=== PATIENT | male | born 1970 | race Caucasian/White ===

== ENCOUNTER 2017-05-05 06:00 | Emergency (ER) | payer BC ==
[2017-05-05] MEDS ORDERED: cefTRIAXone 250 MG Vial IM ONE (06:25)
--- NOTE | 2017-05-05 06:25 | EDM.PDOC ---
ED HPI GENERAL MEDICAL PROBLEM - General Chief Complaint: Genitourinary Problem Stated Complaint: PAIN DURING URINATION Time Seen by Provider: 05/05/17 06:19 - History of Present Illness INITIAL COMMENTS - FREE TEXT/NARRATIVE: HISTORY AND PHYSICAL: History of present illness: Patient is 46-year-old white male presents with a concern of frequency discomfort with urination over the last 24 hours he denies fever chills nausea vomiting or other complaints he states he had similar episode in the past was diagnosed with urinary tract infection he denies urethral discharge states he does not have a history of sexually transmitted diseases and is not concerned about such Review of systems: As per history of present illness and below otherwise all systems reviewed and negative. Past medical history: As per history of present illness and as reviewed below otherwise noncontributory. Surgical history: As per history of present illness and as reviewed below otherwise noncontributory. Social history: No reported history of drug or alcohol abuse. Family history: As per history of present illness and as reviewed below otherwise noncontributory. Physical exam: HEENT: Atraumatic, normocephalic, pupils reactive, negative for conjunctival pallor or scleral icterus, mucous membranes moist, throat clear, neck supple, nontender, trachea midline. Lungs: Clear to auscultation, breath sounds equal bilaterally, chest nontender. Heart: S1S2, regular, negative for clicks, rubs, or JVD. Abdomen: Soft, nondistended, nontender. Negative for masses or hepatosplenomegaly. Negative for costovertebral tenderness. Pelvis: Stable nontender. Genitourinary: Deferred. Rectal: Deferred. Extremities: Atraumatic, negative for cords or calf pain. Neurovascular unremarkable. Neuro: Awake, alert, oriented. Cranial nerves II through XII unremarkable. Cerebellum unremarkable. Motor and sensory unremarkable throughout. Exam nonfocal. Diagnostics: CBC CMP UA urine culture urine for GC/chlamydia Therapeutics: None Impression: #1 dysuria #2 rule out urinary tract infection Definitive disposition and diagnosis as appropriate pending reevaluation and review of above. Penis Pain Score (Numeric/FACES): 7 - Related Data Allergies Allergy/AdvReac Type Severity Reaction Status Date / Time No Known Allergies Allergy Verified 05/05/17 06:09 Home Meds: Home Meds Pantoprazole Sodium 40 mg PO DAILY 05/05/17 [History] Umeclidinium Brm/Vilanterol Tr [Anoro Ellipta 62.5-25 MCG] 1 puff INH ASDIRECTED 05/05/17 [History] ED ROS GENERAL - Review of Systems Review Of Systems: ROS reveals no pertinent complaints other than HPI. ED EXAM, GENERAL - Physical Exam Exam: See Below (See dictation) Course - Vital Signs Last Recorded V/S: Last Vital Signs Temp 36.2 C 05/05/17 06:13 Pulse 114 H 05/05/17 06:13 Resp 18 05/05/17 06:13 BP 123/80 05/05/17 06:13 Pulse Ox 98 05/05/17 06:13 - Orders/Labs/Meds Orders: Active Orders 24 hr Category Date Time Status CBC WITH AUTO DIFF [HEME] Stat Lab 05/05/17 06:21 Ordered CHLAMYDIA TRACHOMATIS/GC AMPLF Stat Lab 05/05/17 06:19 Ordered COMPREHENSIVE METABOLIC PN,CMP [CHEM] Stat Lab 05/05/17 06:22 Ordered CULTURE URINE [RM] Stat Lab 05/05/17 06:19 Ordered UA W/MICROSCOPIC [URIN] Stat Lab 05/05/17 06:19 Ordered Departure - Departure Time of Disposition: 06:24 Disposition: Home, Self-Care 01 Condition: Good Clinical Impression: UTI, Urinary tract infectious disease - Discharge Information Referrals: PCP,None [Primary Care Provider] - Additional Instructions: The following information is given to patients seen in the emergency department who are being discharged to home. This information is to outline your options for follow-up care. We provide all patients seen in our emergency department with a follow-up referral. The need for follow-up, as well as the timing and circumstances, are variable depending upon the specifics of your emergency department visit. If you don't have a primary care physician on staff, we will provide you with a referral. We always advise you to contact your personal physician following an emergency department visit to inform them of the circumstance of the visit and for follow-up with them and/or the need for any referrals to a consulting specialist. The emergency department will also refer you to a specialist when appropriate. This referral assures that you have the opportunity for followup care with a specialist. All of these measure are taken in an effort to provide you with optimal care, which includes your followup. Under all circumstances we always encourage you to contact your private physician who remains a resource for coordinating your care. When calling for followup care, please make the office aware that this follow-up is from your recent emergency room visit. If for any reason you are refused follow-up, please contact the [facility] emergency department at and asked to speak to the emergency department charge nurse. [facility] - Urology [address] [place] [id number] Doxycycline as prescribed Pyridium as prescribed follow-up urology as discussed push fluids return as needed as discussed - My Orders Last 24 Hours: My Active Orders 05/05/17 06:19 CHLAMYDIA TRACHOMATIS/GC AMPLF Stat CULTURE URINE [RM] Stat UA W/MICROSCOPIC [URIN] Stat 05/05/17 06:21 CBC WITH AUTO DIFF [HEME] Stat 05/05/17 06:22 COMPREHENSIVE METABOLIC PN,CMP [CHEM] Stat - Assessment/Plan Last 24 Hours: My Active Orders 05/05/17 06:19 CHLAMYDIA TRACHOMATIS/GC AMPLF Stat CULTURE URINE [RM] Stat UA W/MICROSCOPIC [URIN] Stat 05/05/17 06:21 CBC WITH AUTO DIFF [HEME] Stat 05/05/17 06:22 COMPREHENSIVE METABOLIC PN,CMP [CHEM] Stat
[2017-05-05] MEDS ORDERED: cefTRIAXone 1,000 MG VIAL ONE (06:28)
[2017-05-05] MEDS ORDERED: cefTRIAXone 1,000 MG in Lidocaine 1% 4 ML IM ONE (06:29)
[2017-05-05 07:02] LABS: CHLORIDE,CL 109 mmol/L (98-110); SODIUM,NA 139 mmol/L (136-146)
[2017-05-05 07:28] VITALS: BP 132/70
== END 2017-05-05 07:25 | disposition home or self-care (01) ==
LOC: MW.ED 06:00
DX: N39.0 Urinary tract infection, site not specified (principal)
CPT/HCPCS: 36415; 80053; 81001; 85025; 87086; 87491; 87591; 96372; 99283; J0696; 87088; 87186; 99282

== ENCOUNTER 2019-01-01 10:12 | Observation (INO) | payer BC ==
[2019-01-01] MEDS ORDERED: Ondansetron 4 MG/2 ML SDV IVPUSH ONE ×2 (10:15→11:35)
[2019-01-01] MEDS ORDERED: Ketorolac 30 MG/ML SDV IVPUSH ONE (10:15)
[2019-01-01] MEDS ORDERED: Sodium Chloride 0.9% 1,000 ML IV ONE (10:15)
--- NOTE | 2019-01-01 10:17 | EDM.PDOC ---
ED HPI GENERAL MEDICAL PROBLEM - General Chief Complaint: Abdominal Pain Stated Complaint: STOMACH PAIN Time Seen by Provider: 01/01/19 10:14 Source of Information: Reports: Patient History Limitations: Reports: No Limitations - History of Present Illness INITIAL COMMENTS - FREE TEXT/NARRATIVE: HISTORY AND PHYSICAL: History of present illness: Patient is a 48-year-old male who presents to the emergency room today with complaints of right upper quadrant pain, nausea and vomiting. Patient reports he has had chronic right upper abdominal pain intermittently over the past 8 years. Also has had "diarrhea on and off for about eight years as well". No loose stools or diarrhea today. He does not associate this abdominal pain with eating or drinking. Nothing makes the pain better or worse. States this morning the abdominal pain was worse and associated with nausea and vomiting. He states he does have a history of H. pylori and diverticulosis. Only current medication is Pantoprazole. Patient denies any fever, chills, headache, change in vision, syncope or near syncope. Denies any chest pain, back pain, shortness of breath or cough. Denies any constipation or dysuria. Has not noted any blood in urine or stool. Patient had been eating and drinking appropriately. Review of systems: As per history of present illness and below otherwise all systems reviewed and negative. Past medical history: As per history of present illness and as reviewed below otherwise noncontributory. Surgical history: As per history of present illness and as reviewed below otherwise noncontributory. Social history: See social history for further information Family history: As per history of present illness and as reviewed below otherwise noncontributory. Physical exam: General: Well-developed and well-nourished 48-year-old male. Alert and oriented. Nontoxic appearing and in no acute distress. HEENT: Atraumatic, normocephalic, pupils equal and reactive bilaterally, negative for conjunctival pallor or scleral icterus, mucous membranes moist, TMs normal bilaterally, throat clear, neck supple, nontender, trachea midline. No drooling or trismus noted. No meningeal signs. No hot potato voice noted. Lungs: Clear to auscultation, breath sounds equal bilaterally, chest nontender. Heart: S1S2, regular rate and rhythm without overt murmur Abdomen: Soft, nondistended, right upper quadrant tenderness. Negative for masses or hepatosplenomegaly. Negative for costovertebral tenderness. Pelvis: Stable nontender. Genitourinary: Deferred. Rectal: Deferred. Skin: Intact, warm, dry. No lesions or rashes noted. Extremities: Atraumatic, moves all extremities per self without difficulty or deficits, negative for cords or calf pain. Neurovascular unremarkable. Neuro: Awake, alert, oriented. Cranial nerves II through XII unremarkable. Cerebellum unremarkable. Motor and sensory unremarkable throughout. Exam nonfocal. Notes: Patient reports with this acute onset chronic right upper quadrant pain he has only been treated with a proton pump inhibitor. States that he had the 2 diagnoses of H. pylori and diverticulosis. States he has had an ultrasound of his gallbladder in the past, which was normal. Has had no GI surgeries. CT shows trace clinic within the right upper quadrant, this could represent a mild underlying colitis. There is a few diverticula also noted within the region without overt diverticulitis. The pylorus appears edematous, and peptic ulcer disease cannot be excluded. Patient does have an elevated white count. Patient has not been able to give a urine sample as of yet. Dr. Levi was consulted on this patient along with Dr. Gomez. Patient will be admitted for observation. He is aware and agreeable. 1230: Dr Gomez here to see patient. Diagnostics: CBC, CMP, UA, lipase, H.pylori, CT abd/pelvis Therapeutics: IV fluid, Zofran, Toradol, Cipro, Flagyl, Reglan Impression: Intractable nausea and vomiting Colitis possible peptic ulcer disease Plan: Observation admission to Med/Surg Definitive disposition and diagnosis as appropriate pending reevaluation and review of above. Right Upper Abdomen Pain Score (Numeric/FACES): 10 - Related Data Allergies Allergy/AdvReac Type Severity Reaction Status Date / Time No Known Allergies Allergy Verified 05/05/17 06:09 Home Meds: Home Meds Pantoprazole Sodium 40 mg PO DAILY 05/05/17 [History] Past Medical History HEENT History: Reports: None Cardiovascular History: Reports: None Respiratory History: Reports: None Gastrointestinal History: Reports: Diverticulosis Genitourinary History: Reports: None Musculoskeletal History: Reports: None Neurological History: Reports: None Psychiatric History: Reports: None Endocrine/Metabolic History: Reports: None Hematologic History: Reports: None Immunologic History: Reports: None Oncologic (Cancer) History: Reports: None Dermatologic History: Reports: None - Infectious Disease History Infectious Disease History: Reports: None - Past Surgical History Head Surgeries/Procedures: Reports: None Social & Family History - Family History Family Medical History: Noncontributory - Caffeine Use Caffeine Use: Reports: Coffee ED ROS GENERAL - Review of Systems Review Of Systems: ROS reveals no pertinent complaints other than HPI. ED EXAM, GI/ABD - Physical Exam Exam: See Below (See dictation) Course - Vital Signs Last Recorded V/S: Last Vital Signs Temp 96.5 F 01/01/19 12:45 Pulse 77 01/01/19 12:45 Resp 18 01/01/19 12:45 BP 179/99 H 01/01/19 12:45 Pulse Ox 95 01/01/19 12:45 - Orders/Labs/Meds Orders: Active Orders 24 hr Category Date Time Status Admission Status [Patient Status] [ADT] Stat ADT 01/01/19 12:37 Active UA RFX ZARIA AND CULT IF INDIC [URIN] Stat Lab 01/01/19 10:15 Ordered Ciprofloxacin in D5W [Cipro in D5W 400 MG/200 ML] 400 Med 01/01/19 12:33 Active mg Premix Bag 1 bag IV NOW metroNIDAZOLE/Normal Saline [Flagyl 500 MG in NS 100 ML Med 01/01/19 12:33 Active ] 500 mg Premix Bag 1 bag IV ONETIME Medication Orders Ciprofloxacin/Dextrose 400 mg/ (Premix) 200 mls @ 200 mls/hr IV NOW STA Stop: 01/01/19 13:32 Last Admin: 01/01/19 12:39 Dose: 200 mls/hr Metronidazole 500 mg/ Premix 100 mls @ 100 mls/hr IV ONETIME ONE Stop: 01/01/19 13:32 Labs: Laboratory Tests 01/01/19 01/01/19 01/01/19 Range/Units 10:27 10:27 10:27 WBC 17.31 H (4.0-11.0) K/uL RBC 5.39 (4.50-5.90) M/uL Hgb 16.3 (13.0-17.0) g/dL Hct 47.2 (38.0-50.0) % MCV 87.6 (80.0-98.0) fL MCH 30.2 (27.0-32.0) pg MCHC 34.5 (31.0-37.0) g/dL RDW Std Deviation 43.1 (28.0-62.0) fl RDW Coeff of Eliezer 14 (11.0-15.0) % Plt Count 298 (150-400) K/uL MPV 8.80 (7.40-12.00) fL Neut % (Auto) 80.6 H (48.0-80.0) % Lymph % (Auto) 14.2 L (16.0-40.0) % [place] % (Auto) 4.7 (0.0-15.0) % Eos % (Auto) 0.3 (0.0-7.0) % Baso % (Auto) 0.2 (0.0-1.5) % Neut # (Auto) 14.0 H (1.4-5.7) K/uL Lymph # (Auto) 2.5 H (0.6-2.4) K/uL [place] # (Auto) 0.8 (0.0-0.8) K/uL Eos # (Auto) 0.1 (0.0-0.7) K/uL Baso # (Auto) 0.0 (0.0-0.1) K/uL Nucleated RBC % 0.0 /100WBC Nucleated RBCs # 0 K/uL Sodium 140 (136-148) mmol/L Potassium 4.2 (3.5-5.1) mmol/L Chloride 105 (98-107) mmol/L Carbon Dioxide 20.8 L (21.0-32.0) mmol/L BUN 16 (7.0-18.0) mg/dL Creatinine 1.1 (0.8-1.3) mg/dL Est Cr Clr Drug Dosing 81.18 mL/min Estimated GFR (MDRD) > 60.0 ml/min Glucose 132 H (74-106) mg/dL Calcium 9.0 (8.5-10.1) mg/dL Total Bilirubin 0.3 (0.2-1.0) mg/dL AST 14 L (15-37) IU/L ALT 27 (14-63) IU/L Alkaline Phosphatase 41 L (46-116) U/L Total Protein 8.1 (6.4-8.2) g/dL Albumin 3.9 (3.4-5.0) g/dL Globulin 4.2 H (2.6-4.0) g/dL Albumin/Globulin Ratio 0.9 (0.9-1.6) Lipase 127 (73-393) U/L H. pylori IgG Antibody NEGATIVE (NEG) Meds: Medications Generic Name Dose Route Start Last Admin Trade Name Freq PRN Reason Stop Dose Admin Ciprofloxacin/Dextrose 400 mg/ 200 mls @ 200 mls/hr 01/01/19 12:33 01/01/19 12:39 Premix IV 01/01/19 13:32 200 mls/hr NOW STA Administration Metronidazole 500 mg/ Premix 100 mls @ 100 mls/hr 01/01/19 12:33 IV 01/01/19 13:32 ONETIME ONE Discontinued Medications Generic Name Dose Route Start Last Admin Trade Name Freq PRN Reason Stop Dose Admin Famotidine 20 mg 01/01/19 12:28 01/01/19 12:39 Pepcid IVPUSH 01/01/19 12:29 20 mg ONETIME ONE Administration Sodium Chloride 1,000 mls @ 999 mls/hr 01/01/19 10:15 01/01/19 10:30 Normal Saline IV 01/01/19 11:15 999 mls/hr STAT ONE Administration Iopamidol 100 ml 01/01/19 12:00 01/01/19 12:01 Isovue Multipack-370 (76%) IVPUSH 01/01/19 12:01 100 ml ONETIME ONE Administration Ketorolac Tromethamine 30 mg 01/01/19 10:15 01/01/19 10:29 Toradol IVPUSH 01/01/19 10:16 30 mg ONETIME ONE Administration Metoclopramide HCl 10 mg 01/01/19 12:37 01/01/19 12:41 Reglan IVPUSH 01/01/19 12:38 10 mg ONETIME ONE Administration Morphine Sulfate 2 mg 01/01/19 11:26 01/01/19 11:30 Morphine IVPUSH 01/01/19 11:27 2 mg ONETIME ONE Administration Morphine Sulfate 2 mg 01/01/19 12:05 01/01/19 12:10 Morphine IVPUSH 01/01/19 12:06 2 mg ONETIME ONE Administration Ondansetron HCl 4 mg 01/01/19 10:15 01/01/19 10:29 Zofran IVPUSH 01/01/19 10:16 4 mg ONETIME ONE Administration Ondansetron HCl 4 mg 01/01/19 11:35 01/01/19 11:37 Zofran IVPUSH 01/01/19 11:36 4 mg ONETIME ONE Administration Departure - Departure Time of Disposition: 12:58 Disposition: Refer to Observation Clinical Impression: Colitis Intractable nausea and vomiting Qualifiers: Vomiting type: unspecified Qualified Code(s): R11.2 - Nausea with vomiting, unspecified - Discharge Information - My Orders Last 24 Hours: My Active Orders 01/01/19 10:15 UA RFX ZARIA AND CULT IF INDIC [URIN] Stat 01/01/19 12:33 Ciprofloxacin in D5W [Cipro in D5W 400 MG/200 ML] 400 mg Premix Bag 1 bag IV NOW metroNIDAZOLE/Normal Saline [Flagyl 500 MG in NS 100 ML] 500 mg Premix Bag 1 bag IV ONETIME 01/01/19 12:37 Admission Status [Patient Status] [ADT] Stat - Assessment/Plan Last 24 Hours: My Active Orders 01/01/19 10:15 UA RFX ZARIA AND CULT IF INDIC [URIN] Stat 01/01/19 12:33 Ciprofloxacin in D5W [Cipro in D5W 400 MG/200 ML] 400 mg Premix Bag 1 bag IV NOW metroNIDAZOLE/Normal Saline [Flagyl 500 MG in NS 100 ML] 500 mg Premix Bag 1 bag IV ONETIME 01/01/19 12:37 Admission Status [Patient Status] [ADT] Stat
[2019-01-01 11:16] LABS: CHLORIDE,CL 105 mmol/L (98-107); SODIUM,NA 140 mmol/L (136-148)
[2019-01-01] MEDS ORDERED: Morphine 2 MG/ML Syringe IVPUSH ONE ×2 (11:26→12:05)
[2019-01-01] MEDS ORDERED: Iopamidol 755 MG/ML 500 ML Multipack Bottle IVPUSH ONE (12:00)
--- NOTE | 2019-01-01 12:20 | CT ---
CT of the abdomen and pelvis with contrast. HISTORY: Right upper quadrant pain TECHNIQUE: Axial CT images were obtained of the abdomen and pelvis following administration of 100 mL of Isovue-370 in the left antecubital fossa without complication. Coronal and sagittal reconstructions obtained. FINDINGS: The lung bases are clear, no pleural effusion. The liver, spleen, adrenal glands, and pancreas appear normal. The gallbladder is normal. There is no bulky retroperitoneal lymphadenopathy or abdominal ascites. The kidneys enhance and function symmetrically without evidence of obstructive uropathy. The large and small bowel are normal in caliber without evidence of obstruction. Mild pericolonic inflammation noted near the hepatic flexure. The pylorus also has edematous appearance. There are a few scattered diverticula noted. No pericecal inflammation. The urinary bladder is normal. No pelvic lymphadenopathy or free pelvic fluid. No suspicious osseous abnormalities identified. IMPRESSION: 1. Trace thinning within the right upper quadrant, this could represent a mild underlying colitis. There are a few diverticula also noted within the region without overt diverticulitis. 2. The pylorus also appears edematous, and peptic ulcer disease is not excluded.
[2019-01-01] MEDS ORDERED: Famotidine 20 MG/2 ML SDV IVPUSH ONE (12:28)
[2019-01-01] MEDS ORDERED: metroNIDAZOLE/Normal Saline 500 MG in Premix Bag 1 BAG IV ONE (12:33)
[2019-01-01] MEDS ORDERED: Ciprofloxacin in D5W 400 MG in Premix Bag 1 BAG IV STA ×2 (12:33)
[2019-01-01] MEDS ORDERED: Metoclopramide 10 MG/2 ML SDV IVPUSH ONE (12:37)
--- NOTE | 2019-01-01 14:20 | PCM.HP ---
H&P History of Present Illness - General Date of Service: 01/01/19 Admit Problem/Dx: Admission Diagnosis/Problem Admission Diagnosis/Problem Colitis Source of Information: Patient History Limitations: Reports: No Limitations - History of Present Illness Initial Comments - Free Text/Narative: 48M w/ history of undiagnosed recurrent vomiting, diarrhea, weight loss x8 years presented to the ER with acute flare up of nausea and vomiting that began earlier today. Also complaining of chills. Patient tells me that for the past 8 years, he has had recurrent RUQ pain. He has been to several primary providers for this and he has gotten several different diagnoses including h pylori, GERD , diverticulosis. He has never had an EGD or colonoscopy. HE also endorses 50lbs of weight loss over this time frame, some of which is intentional. He denies blood in stool, but says that he thinks hes emesis today was red in color. Right Upper Abdomen Pain Score (Numeric/FACES): 10 - Related Data Allergies/Adverse Reactions: Allergies Allergy/AdvReac Type Severity Reaction Status Date / Time No Known Allergies Allergy Verified 05/05/17 06:09 Home Medications: Home Meds Pantoprazole Sodium 40 mg PO DAILY 05/05/17 [History] Past Medical History HEENT History: Reports: None Cardiovascular History: Reports: None Respiratory History: Reports: None Gastrointestinal History: Reports: Diverticulosis Other Gastrointestinal History: chronic abdominal pain Genitourinary History: Reports: None Musculoskeletal History: Reports: None Neurological History: Reports: None Psychiatric History: Reports: None Endocrine/Metabolic History: Reports: None Hematologic History: Reports: None Immunologic History: Reports: None Oncologic (Cancer) History: Reports: None Dermatologic History: Reports: None - Infectious Disease History Infectious Disease History: Reports: None - Past Surgical History Head Surgeries/Procedures: Reports: None Social & Family History - Family History Family Medical History: Noncontributory - Tobacco Use Smoking Status *Q: Current Every Day Smoker Years of Tobacco use: 25 Packs/Tins Daily: 1.5 - Caffeine Use Caffeine Use: Reports: Coffee - Recreational Drug Use Recreational Drug Use: No H&P Review of Systems - Review of Systems: Review Of Systems: See Below General: Reports: Chills HEENT: Reports: No Symptoms Pulmonary: Reports: No Symptoms Cardiovascular: Reports: No Symptoms Gastrointestinal: Reports: Abdominal Pain, Diarrhea, Decreased Appetite, Nausea , Vomiting. Denies: Anorexia, Black Stool, Bloody Stool, Constipation, Difficulty Swallowing Genitourinary: Reports: No Symptoms Musculoskeletal: Reports: No Symptoms Skin: Reports: No Symptoms Psychiatric: Reports: No Symptoms Neurological: Reports: No Symptoms Hematologic/Lymphatic: Reports: No Symptoms Immunologic: Reports: No Symptoms Exam - Exam Exam: See Below - Vital Signs Vital Signs: Last Vital Signs Temp 35.8 C 01/01/19 12:45 Pulse 77 01/01/19 12:45 Resp 18 01/01/19 12:45 BP 179/99 H 01/01/19 12:45 Pulse Ox 95 01/01/19 12:45 Weight: 90.718 kg - Exam General: Alert, Oriented, 4 HEENT: PERRLA, Hearing Intact, Mucosa Moist & [place], Nares Patent, Normal Nasal Septum, Posterior Pharynx Clear, Conjunctiva Clear, EOMI, EACs Clear, TMs Clear Neck: Supple, Trachea Midline, 2 Lungs: Clear to Auscultation, Normal Respiratory Effort Cardiovascular: Regular Rate, Regular Rhythm GI/Abdominal Exam: Normal Bowel Sounds, Soft, Non-Tender, No Organomegaly, No Distention, No Abnormal Bruit, No Mass, Pelvis Stable Back Exam: Normal Inspection, Full Range of Motion, NT Extremities: Normal Inspection, Normal Range of Motion, Non-Tender, No Pedal Edema, Normal Capillary Refill Peripheral Pulses: 1+: Dorsalis Pedis (L), Dorsalis Pedis (R) Skin: Warm, Dry, Intact Psychiatric: Alert, Normal Affect, Normal Mood - Patient Data Lab Results Last 24 hrs: Laboratory Results - last 24 hr 01/01/19 01/01/19 01/01/19 Range/Units 10:27 10:27 10:27 WBC 17.31 H (4.0-11.0) K/uL RBC 5.39 (4.50-5.90) M/uL Hgb 16.3 (13.0-17.0) g/dL Hct 47.2 (38.0-50.0) % MCV 87.6 (80.0-98.0) fL MCH 30.2 (27.0-32.0) pg MCHC 34.5 (31.0-37.0) g/dL RDW Std Deviation 43.1 (28.0-62.0) fl RDW Coeff of Eliezer 14 (11.0-15.0) % Plt Count 298 (150-400) K/uL MPV 8.80 (7.40-12.00) fL Neut % (Auto) 80.6 H (48.0-80.0) % Lymph % (Auto) 14.2 L (16.0-40.0) % Ritchie % (Auto) 4.7 (0.0-15.0) % Eos % (Auto) 0.3 (0.0-7.0) % Baso % (Auto) 0.2 (0.0-1.5) % Neut # (Auto) 14.0 H (1.4-5.7) K/uL Lymph # (Auto) 2.5 H (0.6-2.4) K/uL Ritchie # (Auto) 0.8 (0.0-0.8) K/uL Eos # (Auto) 0.1 (0.0-0.7) K/uL Baso # (Auto) 0.0 (0.0-0.1) K/uL Nucleated RBC % 0.0 /100WBC Nucleated RBCs # 0 K/uL Sodium 140 (136-148) mmol/L Potassium 4.2 (3.5-5.1) mmol/L Chloride 105 (98-107) mmol/L Carbon Dioxide 20.8 L (21.0-32.0) mmol/L BUN 16 (7.0-18.0) mg/dL Creatinine 1.1 (0.8-1.3) mg/dL Est Cr Clr Drug Dosing 81.18 mL/min Estimated GFR (MDRD) > 60.0 ml/min Glucose 132 H (74-106) mg/dL Calcium 9.0 (8.5-10.1) mg/dL Total Bilirubin 0.3 (0.2-1.0) mg/dL AST 14 L (15-37) IU/L ALT 27 (14-63) IU/L Alkaline Phosphatase 41 L (46-116) U/L Total Protein 8.1 (6.4-8.2) g/dL Albumin 3.9 (3.4-5.0) g/dL Globulin 4.2 H (2.6-4.0) g/dL Albumin/Globulin Ratio 0.9 (0.9-1.6) Lipase 127 (73-393) U/L Urine Color Urine Appearance Urine pH (5.0-8.0) Ur Specific [place] (1.001-1.035) Urine Protein (NEGATIVE) mg/dL Urine Glucose (UA) (NEGATIVE) mg/dL Urine Ketones (NEGATIVE) mg/dL Urine Occult Blood (NEGATIVE) Urine Nitrite (NEGATIVE) Urine Bilirubin (NEGATIVE) Urine Urobilinogen (<2.0) EU/dL Ur Leukocyte Esterase (NEGATIVE) Urine RBC (0-2/HPF) Urine WBC (0-5/HPF) Ur Epithelial Cells (NONE-FEW) Urine Bacteria (NEGATIVE) H. pylori IgG Antibody NEGATIVE (NEG) 01/01/19 Range/Units 12:52 WBC (4.0-11.0) K/uL RBC (4.50-5.90) M/uL Hgb (13.0-17.0) g/dL Hct (38.0-50.0) % MCV (80.0-98.0) fL MCH (27.0-32.0) pg MCHC (31.0-37.0) g/dL RDW Std Deviation (28.0-62.0) fl RDW Coeff of Eliezer (11.0-15.0) % Plt Count (150-400) K/uL MPV (7.40-12.00) fL Neut % (Auto) (48.0-80.0) % Lymph % (Auto) (16.0-40.0) % Ritchie % (Auto) (0.0-15.0) % Eos % (Auto) (0.0-7.0) % Baso % (Auto) (0.0-1.5) % Neut # (Auto) (1.4-5.7) K/uL Lymph # (Auto) (0.6-2.4) K/uL Ritchie # (Auto) (0.0-0.8) K/uL Eos # (Auto) (0.0-0.7) K/uL Baso # (Auto) (0.0-0.1) K/uL Nucleated RBC % /100WBC Nucleated RBCs # K/uL Sodium (136-148) mmol/L Potassium (3.5-5.1) mmol/L Chloride (98-107) mmol/L Carbon Dioxide (21.0-32.0) mmol/L BUN (7.0-18.0) mg/dL Creatinine (0.8-1.3) mg/dL Est Cr Clr Drug Dosing mL/min Estimated GFR (MDRD) ml/min Glucose (74-106) mg/dL Calcium (8.5-10.1) mg/dL Total Bilirubin (0.2-1.0) mg/dL AST (15-37) IU/L ALT (14-63) IU/L Alkaline Phosphatase (46-116) U/L Total Protein (6.4-8.2) g/dL Albumin (3.4-5.0) g/dL Globulin (2.6-4.0) g/dL Albumin/Globulin Ratio (0.9-1.6) Lipase (73-393) U/L Urine Color YELLOW Urine Appearance CLEAR Urine pH 6.5 (5.0-8.0) Ur Specific [place] 1.010 (1.001-1.035) Urine Protein NEGATIVE (NEGATIVE) mg/dL Urine Glucose (UA) NEGATIVE (NEGATIVE) mg/dL Urine Ketones 15 H (NEGATIVE) mg/dL Urine Occult Blood MODERATE H (NEGATIVE) Urine Nitrite NEGATIVE (NEGATIVE) Urine Bilirubin NEGATIVE (NEGATIVE) Urine Urobilinogen 0.2 (<2.0) EU/dL Ur Leukocyte Esterase NEGATIVE (NEGATIVE) Urine RBC 1-3 (0-2/HPF) Urine WBC NONE SEEN (0-5/HPF) Ur Epithelial Cells NOT SEEN (NONE-FEW) Urine Bacteria RARE (NEGATIVE) H. pylori IgG Antibody (NEG) Result Diagrams: 01/01/19 10:27 01/01/19 10:27 Problem List Initiated/Reviewed/Updated: Yes Orders Last 24hrs: Active Orders 24 hr Category Date Time Status Admission Status [Patient Status] [ADT] Stat ADT 01/01/19 12:37 Active Assessment/Plan Comment:: Assessment: #1. Colitis #2. Leukocytosis #3. Nausea #4. History of recurrent RUQ pain, vomiting, diarrhea #5. Moderate hematuria Plan: #1. Refer for observation. Vitals per floor #2. NPO #3. IV Cipro + Flagyl #4. IVNS 125ml/h #5. To get EGD tomorrow AM by general surgery. Should get a colonoscopy as an outpatient once colitis resolves. #6. Protonix IV 40mg daily #7. Hematuria cause is unclear - he should get a repeat UA as an outpatient and a CT urography/ urology referral. Patient is a current 1-1.5ppd smoker.
[2019-01-01] MEDS ORDERED: Pantoprazole 40 MG in Sodium Chloride 0.9% 100 ML IV SCH (14:30)
[2019-01-01] MEDS: metroNIDAZOLE/Normal Saline 500 MG in Premix Bag 1 BAG IV SCH ×2 (14:34→22:07)
[2019-01-01] MEDS ORDERED: Pantoprazole 40 MG Vial IVPUSH SCH (14:45)
[2019-01-01] MEDS ORDERED: Pantoprazole 40 MG in Sodium Chloride 0.9% 10 ML IV SCH (14:45)
[2019-01-01] MEDS: Sodium Chloride 0.9% 1,000 ML IV SCH ×2 (14:57→22:07)
[2019-01-01] MEDS: Pantoprazole 40 MG in Sodium Chloride 0.9% 10 ML IVPUSH SCH (15:21)
[2019-01-01] MEDS: Ciprofloxacin in D5W 400 MG in Premix Bag 1 BAG IV SCH ×2 (15:25)
[2019-01-01] MEDS: Lisinopril 10 MG Tab PO SCH (15:52)
--- NOTE | 2019-01-01 16:03 | PCM.CONS ---
H&P History of Present Illness - General Date of Service: 01/01/19 Admit Problem/Dx: Admission Diagnosis/Problem Admission Diagnosis/Problem Colitis Source of Information: Patient History Limitations: Reports: No Limitations - History of Present Illness Initial Comments - Free Text/Narative: Patient is a 48-year-old male who presents with acute upper abdominal pain. He says this has been going on for the past 8 years. It is never been this severe. It suddenly came on and he has sharp abdominal pain just to the right of the epigastric area. This is associated with nausea and vomiting. He believes there has been some red tinge to his vomit. He has gone to multiple doctors over the years and been told he has H. pylori, GERD, and diverticulosis. He has a prescription for pantoprazole but only takes this if needed. He has never had an EGD or colonoscopy. He denies any family history of rheumatologic disease or colon cancer. He is very anxious on my exam and states the pain is 10 out of 10. His last bowel movement was this morning. He had several small ones that appeared normal. He denied any hematochezia or melena. Right Upper Abdomen Pain Score (Numeric/FACES): 10 - Related Data Allergies/Adverse Reactions: Allergies Allergy/AdvReac Type Severity Reaction Status Date / Time No Known Allergies Allergy Verified 05/05/17 06:09 Home Medications: Home Meds Pantoprazole Sodium 40 mg PO DAILY 05/05/17 [History] Past Medical History HEENT History: Reports: None Cardiovascular History: Reports: None Respiratory History: Reports: None Gastrointestinal History: Reports: Diverticulosis Other Gastrointestinal History: chronic abdominal pain Genitourinary History: Reports: None Musculoskeletal History: Reports: None Neurological History: Reports: None Psychiatric History: Reports: None Endocrine/Metabolic History: Reports: None Hematologic History: Reports: None Immunologic History: Reports: None Oncologic (Cancer) History: Reports: None Dermatologic History: Reports: None - Infectious Disease History Infectious Disease History: Reports: None - Past Surgical History Head Surgeries/Procedures: Reports: None Social & Family History - Family History Family Medical History: Noncontributory - Tobacco Use Smoking Status *Q: Current Every Day Smoker Years of Tobacco use: 25 Packs/Tins Daily: 1.5 Used Tobacco, but Quit: No - Caffeine Use Caffeine Use: Reports: Coffee - Recreational Drug Use Recreational Drug Use: No H&P Review of Systems - Review of Systems: Review Of Systems: ROS reveals no pertinent complaints other than HPI. Exam - Exam Exam: See Below - Vital Signs Vital Signs: Last Vital Signs Temp 36.6 C 01/01/19 14:00 Pulse 65 01/01/19 14:00 Resp 16 01/01/19 14:00 BP 149/82 H 01/01/19 15:52 Pulse Ox 97 01/01/19 14:00 Weight: 90.718 kg - Exam General: Alert, Oriented, Severe Distress HEENT: Conjunctiva Clear, Mucosa Moist & Okay, Posterior Pharynx Clear Lungs: Clear to Auscultation, Normal Respiratory Effort Cardiovascular: Regular Rate, Regular Rhythm GI/Abdominal Exam: Soft, Tender (epigastric area with deep palpation). No: Guarding, Rigid, Rebound (Male) Exam: No Hernia Back Exam: Normal Inspection Extremities: Normal Inspection - Patient Data Lab Results Last 24 hrs: Laboratory Results - last 24 hr 01/01/19 01/01/19 01/01/19 Range/Units 10:27 10:27 10:27 WBC 17.31 H (4.0-11.0) K/uL RBC 5.39 (4.50-5.90) M/uL Hgb 16.3 (13.0-17.0) g/dL Hct 47.2 (38.0-50.0) % MCV 87.6 (80.0-98.0) fL MCH 30.2 (27.0-32.0) pg MCHC 34.5 (31.0-37.0) g/dL RDW Std Deviation 43.1 (28.0-62.0) fl RDW Coeff of Eliezer 14 (11.0-15.0) % Plt Count 298 (150-400) K/uL MPV 8.80 (7.40-12.00) fL Neut % (Auto) 80.6 H (48.0-80.0) % Lymph % (Auto) 14.2 L (16.0-40.0) % [place] % (Auto) 4.7 (0.0-15.0) % Eos % (Auto) 0.3 (0.0-7.0) % Baso % (Auto) 0.2 (0.0-1.5) % Neut # (Auto) 14.0 H (1.4-5.7) K/uL Lymph # (Auto) 2.5 H (0.6-2.4) K/uL [place] # (Auto) 0.8 (0.0-0.8) K/uL Eos # (Auto) 0.1 (0.0-0.7) K/uL Baso # (Auto) 0.0 (0.0-0.1) K/uL Nucleated RBC % 0.0 /100WBC Nucleated RBCs # 0 K/uL Sodium 140 (136-148) mmol/L Potassium 4.2 (3.5-5.1) mmol/L Chloride 105 (98-107) mmol/L Carbon Dioxide 20.8 L (21.0-32.0) mmol/L BUN 16 (7.0-18.0) mg/dL Creatinine 1.1 (0.8-1.3) mg/dL Est Cr Clr Drug Dosing 81.18 mL/min Estimated GFR (MDRD) > 60.0 ml/min Glucose 132 H (74-106) mg/dL Calcium 9.0 (8.5-10.1) mg/dL Total Bilirubin 0.3 (0.2-1.0) mg/dL AST 14 L (15-37) IU/L ALT 27 (14-63) IU/L Alkaline Phosphatase 41 L (46-116) U/L Total Protein 8.1 (6.4-8.2) g/dL Albumin 3.9 (3.4-5.0) g/dL Globulin 4.2 H (2.6-4.0) g/dL Albumin/Globulin Ratio 0.9 (0.9-1.6) Lipase 127 (73-393) U/L Urine Color Urine Appearance Urine pH (5.0-8.0) Ur Specific [place] (1.001-1.035) Urine Protein (NEGATIVE) mg/dL Urine Glucose (UA) (NEGATIVE) mg/dL Urine Ketones (NEGATIVE) mg/dL Urine Occult Blood (NEGATIVE) Urine Nitrite (NEGATIVE) Urine Bilirubin (NEGATIVE) Urine Urobilinogen (<2.0) EU/dL Ur Leukocyte Esterase (NEGATIVE) Urine RBC (0-2/HPF) Urine WBC (0-5/HPF) Ur Epithelial Cells (NONE-FEW) Urine Bacteria (NEGATIVE) H. pylori IgG Antibody NEGATIVE (NEG) 01/01/19 Range/Units 12:52 WBC (4.0-11.0) K/uL RBC (4.50-5.90) M/uL Hgb (13.0-17.0) g/dL Hct (38.0-50.0) % MCV (80.0-98.0) fL MCH (27.0-32.0) pg MCHC (31.0-37.0) g/dL RDW Std Deviation (28.0-62.0) fl RDW Coeff of Eliezer (11.0-15.0) % Plt Count (150-400) K/uL MPV (7.40-12.00) fL Neut % (Auto) (48.0-80.0) % Lymph % (Auto) (16.0-40.0) % [place] % (Auto) (0.0-15.0) % Eos % (Auto) (0.0-7.0) % Baso % (Auto) (0.0-1.5) % Neut # (Auto) (1.4-5.7) K/uL Lymph # (Auto) (0.6-2.4) K/uL [place] # (Auto) (0.0-0.8) K/uL Eos # (Auto) (0.0-0.7) K/uL Baso # (Auto) (0.0-0.1) K/uL Nucleated RBC % /100WBC Nucleated RBCs # K/uL Sodium (136-148) mmol/L Potassium (3.5-5.1) mmol/L Chloride (98-107) mmol/L Carbon Dioxide (21.0-32.0) mmol/L BUN (7.0-18.0) mg/dL Creatinine (0.8-1.3) mg/dL Est Cr Clr Drug Dosing mL/min Estimated GFR (MDRD) ml/min Glucose (74-106) mg/dL Calcium (8.5-10.1) mg/dL Total Bilirubin (0.2-1.0) mg/dL AST (15-37) IU/L ALT (14-63) IU/L Alkaline Phosphatase (46-116) U/L Total Protein (6.4-8.2) g/dL Albumin (3.4-5.0) g/dL Globulin (2.6-4.0) g/dL Albumin/Globulin Ratio (0.9-1.6) Lipase (73-393) U/L Urine Color YELLOW Urine Appearance CLEAR Urine pH 6.5 (5.0-8.0) Ur Specific [place] 1.010 (1.001-1.035) Urine Protein NEGATIVE (NEGATIVE) mg/dL Urine Glucose (UA) NEGATIVE (NEGATIVE) mg/dL Urine Ketones 15 H (NEGATIVE) mg/dL Urine Occult Blood MODERATE H (NEGATIVE) Urine Nitrite NEGATIVE (NEGATIVE) Urine Bilirubin NEGATIVE (NEGATIVE) Urine Urobilinogen 0.2 (<2.0) EU/dL Ur Leukocyte Esterase NEGATIVE (NEGATIVE) Urine RBC 1-3 (0-2/HPF) Urine WBC NONE SEEN (0-5/HPF) Ur Epithelial Cells NOT SEEN (NONE-FEW) Urine Bacteria RARE (NEGATIVE) H. pylori IgG Antibody (NEG) Result Diagrams: 01/01/19 10:27 01/01/19 10:27 Consult PN Assessment/Plan Procedures: Procedures CHYLMD TRACH DNA AMP PROBE (05/05/17) CO/MEMBANE DIFFUSE CAPACITY (05/07/17) COMPLETE CBC W/AUTO DIFF WBC (05/05/17) COMPREHEN METABOLIC PANEL (05/05/17) EMERGENCY DEPT VISIT (05/05/17) EVALUATION OF WHEEZING (05/07/17) N.GONORRHOEAE DNA AMP PROB (05/05/17) ROUTINE VENIPUNCTURE (05/05/17) THER/PROPH/DIAG INJ SC/IM (05/05/17) URINALYSIS AUTO W/SCOPE (05/05/17) URINE CULTURE/COLONY COUNT (05/05/17) (1) Colitis SNOMED Code(s): 34614045 Code(s): K52.9 - NONINFECTIVE GASTROENTERITIS AND COLITIS, UNSPECIFIED Current Visit: Yes (2) Intractable nausea and vomiting SNOMED Code(s): 581019944 Code(s): R11.2 - NAUSEA WITH VOMITING, UNSPECIFIED Current Visit: Yes Qualifiers: Vomiting type: unspecified Qualified Code(s): R11.2 - Nausea with vomiting , unspecified Problem List Initiated/Reviewed/Updated: Yes Plan: Other than being hypertensive the patient appears to be vitally stable on admission. His white blood cell count is elevated at 17,000 with a left shift. CT scan of the abdomen pelvis showed some inflammation at the pylorus crushable for peptic ulcer disease as well some mild thickening at the hepatic flexure suggestive of mild colitis. I explained to the patient that he could have 2 processes going on or one causing the other. He'll be admitted to the medicine team. He should get blood spectrum IV antibiotics, kept nothing by mouth, and he started on IV PPI therapy. Pain control per the primary team. He can start sucralfate or Carafate 4 times a day. His H. pylori test was negative. I will perform a diagnostic EGD on him to look for peptic ulcer disease. Given the signs of inflammation of the colon, I will not perform a diagnostic colonoscopy at this time. I discussed the EGD procedure including the expected perioperative course as well as the risks such as bleeding and perforation. He verbalized understanding and wished to proceed. I will try to perform this test tomorrow.
[2019-01-01] MEDS: Ondansetron 4 MG/2 ML SDV IVPUSH PRN (18:19)
[2019-01-02] MEDS: Ciprofloxacin in D5W 400 MG in Premix Bag 1 BAG IV SCH ×4 (02:14→14:13)
[2019-01-02] MEDS: Ondansetron 4 MG/2 ML SDV IVPUSH PRN ×3 (05:17→22:01)
[2019-01-02] MEDS: metroNIDAZOLE/Normal Saline 500 MG in Premix Bag 1 BAG IV SCH ×3 (06:03→22:01)
[2019-01-02 06:57] LABS: CHLORIDE,CL 107 mmol/L (98-107); SODIUM,NA 140 mmol/L (136-148)
[2019-01-02] MEDS ORDERED: fentaNYL 100 MCG/2 ML SDV ONE (07:02)
[2019-01-02] MEDS ORDERED: Propofol 200 MG/20 ML SDV ONE (07:02)
[2019-01-02] MEDS ORDERED: Midazolam 1 MG/ML 2 ML SDV ONE (07:03)
[2019-01-02] MEDS ORDERED: Ondansetron 4 MG/2 ML SDV ONE (07:04)
[2019-01-02] MEDS ORDERED: Dexamethasone 4 MG/ML 5 ML MDV ONE (07:04)
[2019-01-02] MEDS ORDERED: Rocuronium 100 MG/10 ML Syringe ONE (07:07)
--- NOTE | 2019-01-02 07:23 | PCM.PREANE ---
Preanesthetic Assessment - Anesthesia/Transfusion/Family Hx Anesthesia History: No Prior Anesthesia Family History of Anesthesia Reaction: No Transfusion History: No Prior Transfusion(s) - Review of Systems General: No Symptoms Pulmonary: No Symptoms Cardiovascular: No Symptoms Gastrointestinal: Abdominal Pain, Nausea, Vomiting Neurological: No Symptoms Other: Reports: None - Physical Assessment NPO Status Date: 01/01/19 NPO Status Time: 22:00 (water) O2 Sat by Pulse Oximetry: 95 Respiratory Rate: 18 Blood Pressure: 149/82 Vital Signs: Last Vital Signs Temp 37 C 01/02/19 03:44 Pulse 70 01/02/19 03:44 Resp 18 01/02/19 03:44 BP 156/87 H 01/02/19 03:44 Pulse Ox 95 01/02/19 03:44 Height: 1.73 m Weight: 90.718 kg ASA Class: 2 Mental Status: Alert & Oriented x3 Airway Class: Mallampati = 2 Dentition: Reports: Broken Tooth/Teeth (states top right and left have broken teeth) ROM/Head Extension: Full - Lab Values: Laboratory Last Values WBC 12.30 K/uL (4.0-11.0) H 01/02/19 05:59 RBC 4.84 M/uL (4.50-5.90) 01/02/19 05:59 Hgb 14.2 g/dL (13.0-17.0) 01/02/19 05:59 Hct 42.7 % (38.0-50.0) 01/02/19 05:59 MCV 88.2 fL (80.0-98.0) 01/02/19 05:59 MCH 29.3 pg (27.0-32.0) 01/02/19 05:59 MCHC 33.3 g/dL (31.0-37.0) 01/02/19 05:59 RDW Std Deviation 43.1 fl (28.0-62.0) 01/02/19 05:59 RDW Coeff of Eliezer 13 % (11.0-15.0) 01/02/19 05:59 Plt Count 261 K/uL (150-400) 01/02/19 05:59 MPV 8.80 fL (7.40-12.00) 01/02/19 05:59 Neut % (Auto) 80.6 % (48.0-80.0) H 01/01/19 10:27 Lymph % (Auto) 14.2 % (16.0-40.0) L 01/01/19 10:27 [place] % (Auto) 4.7 % (0.0-15.0) 01/01/19 10:27 Eos % (Auto) 0.3 % (0.0-7.0) 01/01/19 10:27 Baso % (Auto) 0.2 % (0.0-1.5) 01/01/19 10:27 Neut # (Auto) 14.0 K/uL (1.4-5.7) H 01/01/19 10: Lymph # (Auto) 2.5 K/uL (0.6-2.4) H 01/01/19 10:27 [place] # (Auto) 0.8 K/uL (0.0-0.8) 01/01/19 10: Eos # (Auto) 0.1 K/uL (0.0-0.7) 01/01/19 10: Baso # (Auto) 0.0 K/uL (0.0-0.1) 01/01/19 10:27 Nucleated RBC % 0.0 /100WBC 01/02/19 05:59 Nucleated RBCs # 0 K/uL 01/02/19 05:59 Sodium 140 mmol/L (136-148) 01/02/19 05:59 Potassium 3.7 mmol/L (3.5-5.1) 01/02/19 05:59 Chloride 107 mmol/L (98-107) 01/02/19 05:59 Carbon Dioxide 22.3 mmol/L (21.0-32.0) 01/02/19 05:59 BUN 7 mg/dL (7.0-18.0) 01/02/19 05:59 Creatinine 0.9 mg/dL (0.8-1.3) 01/02/19 05:59 Est Cr Clr Drug Dosing 99.22 mL/min 01/02/19 05:59 Estimated GFR (MDRD) > 60.0 ml/min 01/02/19 05:59 Glucose 116 mg/dL (74-106) H 01/02/19 05:59 Calcium 8.2 mg/dL (8.5-10.1) L 01/02/19 05:59 Total Bilirubin 0.6 mg/dL (0.2-1.0) 01/02/19 05:59 AST 8 IU/L (15-37) L 01/02/19 05:59 ALT 19 IU/L (14-63) 01/02/19 05:59 Alkaline Phosphatase 37 U/L (46-116) L 01/02/19 05:59 Total Protein 6.7 g/dL (6.4-8.2) 01/02/19 05:59 Albumin 3.2 g/dL (3.4-5.0) L 01/02/19 05:59 Globulin 3.5 g/dL (2.6-4.0) 01/02/19 05:59 Albumin/Globulin Ratio 0.9 (0.9-1.6) 01/02/19 05:59 Lipase 127 U/L (73-393) 01/01/19 10:27 Urine Color YELLOW 01/01/19 12:52 Urine Appearance CLEAR 01/01/19 12:52 Urine pH 6.5 (5.0-8.0) 01/01/19 12:52 Ur Specific [place] 1.010 (1.001-1.035) 01/01/19 12:52 Urine Protein NEGATIVE mg/dL (NEGATIVE) 01/01/19 12:52 Urine Glucose (UA) NEGATIVE mg/dL (NEGATIVE) 01/01/19 12:52 Urine Ketones 15 mg/dL (NEGATIVE) H 01/01/19 12:52 Urine Occult Blood MODERATE (NEGATIVE) H 01/01/19 12:52 Urine Nitrite NEGATIVE (NEGATIVE) 01/01/19 12:52 Urine Bilirubin NEGATIVE (NEGATIVE) 01/01/19 12:52 Urine Urobilinogen 0.2 EU/dL (<2.0) 01/01/19 12:52 Ur Leukocyte Esterase NEGATIVE (NEGATIVE) 01/01/19 12:52 Urine RBC 1-3 (0-2/HPF) 01/01/19 12:52 Urine WBC NONE SEEN (0-5/HPF) 01/01/19 12:52 Ur Epithelial Cells NOT SEEN (NONE-FEW) 01/01/19 12:52 Urine Bacteria RARE (NEGATIVE) 01/01/19 12:52 H. pylori IgG Antibody NEGATIVE (NEG) 01/01/19 10:27 - Allergies Allergies/Adverse Reactions: Allergies Allergy/AdvReac Type Severity Reaction Status Date / Time No Known Allergies Allergy Verified 05/05/17 06:09 - Anesthesia Plan Free Text/Narrative:: ETT with RSI - Acknowledgements Anesthesia Type Planned: General Anesthesia Pt an Appropriate Candidate for the Planned Anesthesia: Yes Alternatives and Risks of Anesthesia Discussed w Pt/Guardian: Yes Pt/Guardian Understands and Agrees with Anesthesia Plan: Yes PreAnesthesia Questionnaire HEENT History: Reports: None Cardiovascular History: Reports: None Respiratory History: Reports: None Gastrointestinal History: Reports: Diverticulosis Other Gastrointestinal History: chronic abdominal pain Genitourinary History: Reports: None Musculoskeletal History: Reports: None Neurological History: Reports: None Psychiatric History: Reports: None Endocrine/Metabolic History: Reports: None Hematologic History: Reports: None Immunologic History: Reports: None Oncologic (Cancer) History: Reports: None Dermatologic History: Reports: None - Infectious Disease History Infectious Disease History: Reports: None - Past Surgical History Head Surgeries/Procedures: Reports: None - SUBSTANCE USE Smoking Status *Q: Current Every Day Smoker Tobacco Use Within Last Twelve Months: Cigarettes Recreational Drug Use History: No - HOME MEDS Home Medications: Home Meds Pantoprazole Sodium 40 mg PO DAILY 05/05/17 [History] - CURRENT (IN HOUSE) MEDS Current Meds: Current Medications Sodium Chloride (Normal Saline) 1,000 mls @ 125 mls/hr IV ASDIRECTED [facility] Last Admin: 01/01/19 22:07 Dose: 125 mls/hr Ciprofloxacin/Dextrose 400 mg/ (Premix) 200 mls @ 200 mls/hr IV Q12H [facility] Last Admin: 01/02/19 02:14 Dose: 200 mls/hr Metronidazole 500 mg/ Premix 100 mls @ 100 mls/hr IV Q8H [facility] Last Admin: 01/02/19 06:03 Dose: 6 mls/hr Pantoprazole Sodium 40 mg/ (Sodium Chloride) 10 mls @ 200 mls/hr IVPUSH Q24H [facility] Last Admin: 01/01/19 15:21 Dose: 200 mls/hr Lisinopril (Prinivil) 10 mg PO DAILY [facility] Last Admin: 01/01/19 15:52 Dose: 10 mg Ondansetron HCl (Zofran) 4 mg IVPUSH Q4H PRN PRN Reason: Nausea Last Admin: 01/02/19 05:17 Dose: 4 mg Discontinued Medications Dexamethasone (Dexamethasone) Confirm Administered Dose 20 mg .ROUTE .STK-MED ONE Stop: 01/02/19 07:05 Famotidine (Pepcid) 20 mg IVPUSH ONETIME ONE Stop: 01/01/19 12:29 Last Admin: 01/01/19 12:39 Dose: 20 mg Fentanyl (Sublimaze) Confirm Administered Dose 100 mcg .ROUTE .STK-MED ONE Stop: 01/02/19 07:03 Sodium Chloride (Normal Saline) 1,000 mls @ 999 mls/hr IV STAT ONE Stop: 01/01/19 11:15 Last Admin: 01/01/19 10:30 Dose: 999 mls/hr Ciprofloxacin/Dextrose 400 mg/ (Premix) 200 mls @ 200 mls/hr IV NOW STA Stop: 01/01/19 13:32 Last Admin: 01/01/19 12:39 Dose: 200 mls/hr Metronidazole 500 mg/ Premix 100 mls @ 100 mls/hr IV ONETIME ONE Stop: 01/01/19 13:32 Last Admin: 01/01/19 14:02 Dose: 100 mls/hr Pantoprazole Sodium 40 mg/ (Sodium Chloride) 100 mls @ 10 mls/hr IV Q24H [facility] Last Admin: 01/01/19 17:17 Dose: Not Given Lidocaine HCl (Xylocaine-Mpf 1%) Confirm Administered Dose 5 mls @ as directed .ROUTE .STK-MED ONE Stop: 01/02/19 07:05 Iopamidol (Isovue Multipack-370 (76%)) 100 ml IVPUSH ONETIME ONE Stop: 01/01/19 12:01 Last Admin: 01/01/19 12:01 Dose: 100 ml Ketorolac Tromethamine (Toradol) 30 mg IVPUSH ONETIME ONE Stop: 01/01/19 10:16 Last Admin: 01/01/19 10:29 Dose: 30 mg Metoclopramide HCl (Reglan) 10 mg IVPUSH ONETIME ONE Stop: 01/01/19 12:38 Last Admin: 01/01/19 12:41 Dose: 10 mg Midazolam HCl (Versed 1 Mg/Ml) Confirm Administered Dose 2 mg .ROUTE .STK-MED ONE Stop: 01/02/19 07:04 Morphine Sulfate (Morphine) 2 mg IVPUSH ONETIME ONE Stop: 01/01/19 11:27 Last Admin: 01/01/19 11:30 Dose: 2 mg Morphine Sulfate (Morphine) 2 mg IVPUSH ONETIME ONE Stop: 01/01/19 12:06 Last Admin: 01/01/19 12:10 Dose: 2 mg Ondansetron HCl (Zofran) 4 mg IVPUSH ONETIME ONE Stop: 01/01/19 10:16 Last Admin: 01/01/19 10:29 Dose: 4 mg Ondansetron HCl (Zofran) 4 mg IVPUSH ONETIME ONE Stop: 01/01/19 11:36 Last Admin: 01/01/19 11:37 Dose: 4 mg Ondansetron HCl (Zofran) Confirm Administered Dose 4 mg .ROUTE .STK-MED ONE Stop: 01/02/19 07:05 Propofol (Diprivan 20 Ml) Confirm Administered Dose 200 mg .ROUTE .STK-MED ONE Stop: 01/02/19 07:03 Rocuronium [place] (Zemuron) Confirm Administered Dose 100 mg .ROUTE .STK-MED ONE Stop: 01/02/19 07:08 Succinylcholine Chloride (Succinylcholine Chloride) Confirm Administered Dose 200 mg .ROUTE .STK-MED ONE Stop: 01/02/19 07:08
[2019-01-02] MEDS ORDERED: Phenylephrine/Normal Saline 100 MCG/ML 10 ML Syringe ONE (07:58)
--- NOTE | 2019-01-02 08:14 | PCM.OPNOTE ---
- General Post-Op/Procedure Note Date of Surgery/Procedure: 01/02/19 Operative Procedure(s): Diagnostic EGD with biopsy Findings: Large ulcer in the pylorus. No curent signs of bleeding but ~100cc coffee ground emesis in stomach. Duodenitis. Small ulcer at Z-line (junction of esophagus and stomach) Pre Op Diagnosis: Pyloric inflammation Post-Op Diagnosis: Peptic ulcer disease Anesthesia Technique: General ET Tube Primary Surgeon: Emma Gomez Condition: Fair Free Text/Narrative:: Intake & Output 01/01/19 01/02/19 01/02/19 22:59 06:59 14:59 Intake Total 10 1986 Output Total 0 1280 Balance 10 707
--- NOTE | 2019-01-02 08:19 | PCM.SN ---
- Free Text/Narrative Note: Patient had one small emesis last evening. Vitals stable other than hypertensive. Abdomen soft, nontender this morning. Took to OR for diagnostic EGD. This shows PUD with an ulcer along the pylorus, duodenitis and a small ulcer at the GE junction. There was very little fluid in the stomach at the time of the scope so did not place an NG. Labs are improving. Would continue with broad spectrum antibiotics for colitis. Continue with PPI treatment and sucralfate for PUD. If patient feeling better with good nausea control can advance to clears but would not advance past this today. If in am his WBC is normal and tolerating clears can advance to regular.
--- NOTE | 2019-01-02 08:37 | PCM.POSTAN ---
POST ANESTHESIA ASSESSMENT - MENTAL STATUS Mental Status: Alert, Oriented - RESPIRATORY Respiratory Status: Respiratory Rate WNL, Airway Patent, O2 Saturation Stable - CARDIOVASCULAR CV Status: Pulse Rate WNL, Blood Pressure Stable - GASTROINTESTINAL GI Status: No Symptoms - POST OP HYDRATION Hydration Status: Adequate & Stable
[2019-01-02] MEDS: Lisinopril 10 MG Tab PO SCH (09:14)
--- NOTE | 2019-01-02 09:20 | OR ---
SURGEON: LASHON VARGAS MD DATE OF PROCEDURE: 01/02/2019 PREOPERATIVE DIAGNOSIS: Pyloric inflammation. POSTOPERATIVE DIAGNOSIS: Peptic ulcer disease. PROCEDURE PERFORMED: Diagnostic EGD with biopsy. ANESTHESIA: MAC. INSTRUMENT USED: Olympus endoscope. EXTENT OF EXAM: To the second portion of duodenum. PREPARATION: Good. LIMITATIONS: None. INDICATION FOR EXAMINATION: The patient is a 48-year-old male who presents with severe abdominal pain. He was admitted to the ER to the Medicine Team. A CT scan of the abdomen and pelvis showed pyloric inflammation as well as colitis. He is being treated with broad-spectrum antibiotics and PPI therapy. H pylori antigen test was negative. The patient and I discussed the need for diagnostic EGD to confirm the cause of his pyloric inflammation. I explained the procedure, expected perioperative course, and risks including bleeding, infection, or damage to surrounding structures including perforation. The patient verbalized understanding and wishes to proceed. PROCEDURE IN DETAIL: The patient was brought to the OR and placed on the OR cart in supine position. A time-out was completed verifying the patient's name, age, date of , allergies, and procedure to be performed. General endotracheal anesthesia was induced. A bite block was placed in the patient's mouth and he was placed in a beach chair position. A well lubricated endoscope was placed in the patient's mouth and advanced under direct visualization to the pylorus. Upon entering the stomach, about 100 mL of coffee-ground emesis was encountered. This was suctioned out. I was unable to get a better look at the gastric mucosa. The patient had a cratered ulcer in the pre-pyloric area. There was no clot on this and no exposed vessel. There were no signs of recent bleeding. I gently navigated my scope past this area. There was some solid food in the first portion of duodenum. With gentle manipulation, I was able to get pass this food and visualized the second portion duodenum. Photograph was taken of this area and the scope was then fully withdrawn. The duodenum appeared inflamed, but of the areas of the mucosa I could, see there was no ulceration. The scope was then brought back in the stomach and a photograph taken of the pre pyloric ulcer as well as with the scope retroflexed within the stomach. Biopsies were taken around the pyloric ulcer and labeled as pylorus. Biopsies were then taken of the gastric antrum, body, and fundus and sent for histologic review and H. pylori testing as well. The scope was then brought into the distal esophagus and a photograph taken of the Z-line. There was a small ulcer right at the Z-line. The remainder of the esophagus, however, appeared normal. The scope was removed and the procedure terminated. The patient was extubated and taken to PACU in stable condition. ENDOSCOPIC DIAGNOSIS: Peptic ulcer disease. RECOMMENDATIONS: We will visit with Medicine Team about next steps in treatment. LAURIE LARA /[id number] ANDREWS
[2019-01-02] MEDS: Sodium Chloride 0.9% 1,000 ML IV SCH ×2 (10:46→20:02)
[2019-01-02] MEDS ORDERED: traMADol 50 MG Tab PO ONE (11:35)
[2019-01-02] MEDS: Morphine 2 MG/ML Syringe IVPUSH PRN (14:41)
[2019-01-02] MEDS: Pantoprazole 40 MG in Sodium Chloride 0.9% 10 ML IVPUSH SCH (15:27)
[2019-01-02] MEDS: Sucralfate 1 GM Tab PO SCH ×2 (16:59→20:02)
--- NOTE | 2019-01-02 17:15 | PCM48HPAN ---
Post Anesthesia Note - EVALUATION WITHIN 48HRS OF ANESTHETIC Vital Signs in Normal Range: Yes Patient Participated in Evaluation: Yes Respiratory Function Stable: Yes Airway Patent: Yes Cardiovascular Function Stable: Yes Hydration Status Stable: Yes Pain Control Satisfactory: No (States still having abdominal pain as before surgery) Nausea and Vomiting Control Satisfactory: No (Remains nauseated as before surgery) Mental Status Recovered: Yes Resp Rate: 16 Blood Pressure: 181/94 - COMMENTS/OBSERVATIONS Free Text/Narrative:: Patient states he has recovered from anesthesia fine but continues to have nausea and abdominal pain like he had before surgery.
--- NOTE | 2019-01-02 18:20 | PCM.PN ---
- General Info Date of Service: 01/02/19 - Review of Systems Systems Review Comment:: reports abdominal pain - Patient Data Vitals - Most Recent: Last Vital Signs Temp 37.4 C 01/02/19 15:48 Pulse 77 01/02/19 15:48 Resp 16 01/02/19 17:15 BP 181/94 H 01/02/19 17:15 Pulse Ox 94 L 01/02/19 15:48 Weight - Most Recent: 90.718 kg I&O - Last 24 Hours: Intake & Output 01/02/19 01/02/19 01/02/19 06:59 14:59 22:59 Intake Total 0932 251 8124 Output Total 1280 1500 Balance 707 600 -370 Lab Results Last 24 Hours: Laboratory Results - last 24 hr 01/02/19 01/02/19 Range/Units 05:59 05:59 WBC 12.30 H (4.0-11.0) K/uL RBC 4.84 (4.50-5.90) M/uL Hgb 14.2 (13.0-17.0) g/dL Hct 42.7 (38.0-50.0) % MCV 88.2 (80.0-98.0) fL MCH 29.3 (27.0-32.0) pg MCHC 33.3 (31.0-37.0) g/dL RDW Std Deviation 43.1 (28.0-62.0) fl RDW Coeff of Eliezer 13 (11.0-15.0) % Plt Count 261 (150-400) K/uL MPV 8.80 (7.40-12.00) fL Nucleated RBC % 0.0 /100WBC Nucleated RBCs # 0 K/uL Sodium 140 (136-148) mmol/L Potassium 3.7 (3.5-5.1) mmol/L Chloride 107 (98-107) mmol/L Carbon Dioxide 22.3 (21.0-32.0) mmol/L BUN 7 (7.0-18.0) mg/dL Creatinine 0.9 (0.8-1.3) mg/dL Est Cr Clr Drug Dosing 99.22 mL/min Estimated GFR (MDRD) > 60.0 ml/min Glucose 116 H (74-106) mg/dL Calcium 8.2 L (8.5-10.1) mg/dL Total Bilirubin 0.6 (0.2-1.0) mg/dL AST 8 L (15-37) IU/L ALT 19 (14-63) IU/L Alkaline Phosphatase 37 L (46-116) U/L Total Protein 6.7 (6.4-8.2) g/dL Albumin 3.2 L (3.4-5.0) g/dL Globulin 3.5 (2.6-4.0) g/dL Albumin/Globulin Ratio 0.9 (0.9-1.6) Med Orders - Current: Current Medications Sodium Chloride (Normal Saline) 1,000 mls @ 125 mls/hr IV ASDIRECTED [facility] Last Admin: 01/02/19 10:46 Dose: 125 mls/hr Ciprofloxacin/Dextrose 400 mg/ (Premix) 200 mls @ 200 mls/hr IV Q12H [facility] Last Admin: 01/02/19 14:13 Dose: 200 mls/hr Metronidazole 500 mg/ Premix 100 mls @ 100 mls/hr IV Q8H [facility] Last Admin: 01/02/19 15:27 Dose: 6 mls/hr Pantoprazole Sodium 40 mg/ (Sodium Chloride) 10 mls @ 200 mls/hr IVPUSH Q24H [facility] Last Admin: 01/02/19 15:27 Dose: 200 mls/hr Lisinopril (Prinivil) 10 mg PO DAILY [facility] Last Admin: 01/02/19 09:14 Dose: 10 mg Morphine Sulfate (Morphine) 2 mg IVPUSH Q3H PRN PRN Reason: Pain Last Admin: 01/02/19 14:41 Dose: 2 mg Ondansetron HCl (Zofran) 4 mg IVPUSH Q4H PRN PRN Reason: Nausea Last Admin: 01/02/19 14:42 Dose: 4 mg Sucralfate (Carafate) 1 gm PO QIDACANDBED [facility] Last Admin: 01/02/19 16:59 Dose: 1 gm Discontinued Medications Dexamethasone (Dexamethasone) Confirm Administered Dose 20 mg .ROUTE .STK-MED ONE Stop: 01/02/19 07:05 Famotidine (Pepcid) 20 mg IVPUSH ONETIME ONE Stop: 01/01/19 12:29 Last Admin: 01/01/19 12:39 Dose: 20 mg Fentanyl (Sublimaze) Confirm Administered Dose 100 mcg .ROUTE .STK-MED ONE Stop: 01/02/19 07:03 Sodium Chloride (Normal Saline) 1,000 mls @ 999 mls/hr IV STAT ONE Stop: 01/01/19 11:15 Last Admin: 01/01/19 10:30 Dose: 999 mls/hr Ciprofloxacin/Dextrose 400 mg/ (Premix) 200 mls @ 200 mls/hr IV NOW STA Stop: 01/01/19 13:32 Last Admin: 01/01/19 12:39 Dose: 200 mls/hr Metronidazole 500 mg/ Premix 100 mls @ 100 mls/hr IV ONETIME ONE Stop: 01/01/19 13:32 Last Admin: 01/01/19 14:02 Dose: 100 mls/hr Pantoprazole Sodium 40 mg/ (Sodium Chloride) 100 mls @ 10 mls/hr IV Q24H [facility] Last Admin: 01/01/19 17:17 Dose: Not Given Lidocaine HCl (Xylocaine-Mpf 1%) Confirm Administered Dose 5 mls @ as directed .ROUTE .STK-MED ONE Stop: 01/02/19 07:05 Iopamidol (Isovue Multipack-370 (76%)) 100 ml IVPUSH ONETIME ONE Stop: 01/01/19 12:01 Last Admin: 01/01/19 12:01 Dose: 100 ml Ketorolac Tromethamine (Toradol) 30 mg IVPUSH ONETIME ONE Stop: 01/01/19 10:16 Last Admin: 01/01/19 10:29 Dose: 30 mg Metoclopramide HCl (Reglan) 10 mg IVPUSH ONETIME ONE Stop: 01/01/19 12:38 Last Admin: 01/01/19 12:41 Dose: 10 mg Midazolam HCl (Versed 1 Mg/Ml) Confirm Administered Dose 2 mg .ROUTE .STK-MED ONE Stop: 01/02/19 07:04 Morphine Sulfate (Morphine) 2 mg IVPUSH ONETIME ONE Stop: 01/01/19 11:27 Last Admin: 01/01/19 11:30 Dose: 2 mg Morphine Sulfate (Morphine) 2 mg IVPUSH ONETIME ONE Stop: 01/01/19 12:06 Last Admin: 01/01/19 12:10 Dose: 2 mg Ondansetron HCl (Zofran) 4 mg IVPUSH ONETIME ONE Stop: 01/01/19 10:16 Last Admin: 01/01/19 10:29 Dose: 4 mg Ondansetron HCl (Zofran) 4 mg IVPUSH ONETIME ONE Stop: 01/01/19 11:36 Last Admin: 01/01/19 11:37 Dose: 4 mg Ondansetron HCl (Zofran) Confirm Administered Dose 4 mg .ROUTE .STK-MED ONE Stop: 01/02/19 07:05 Phenylephrine HCl (Phenylephrine In Ns 100 Mcg/Ml) Confirm Administered Dose 1 mg .ROUTE .STK-MED ONE Stop: 01/02/19 07:59 Propofol (Diprivan 20 Ml) Confirm Administered Dose 200 mg .ROUTE .STK-MED ONE Stop: 01/02/19 07:03 Rocuronium [place] (Zemuron) Confirm Administered Dose 100 mg .ROUTE .STK-MED ONE Stop: 01/02/19 07:08 Succinylcholine Chloride (Succinylcholine Chloride) Confirm Administered Dose 200 mg .ROUTE .STK-MED ONE Stop: 01/02/19 07:08 Tramadol HCl (Ultram) 50 mg PO ONETIME ONE Stop: 01/02/19 11:36 Last Admin: 01/02/19 11:46 Dose: 50 mg - Exam General: Alert, Oriented Lungs: Clear to Auscultation, Normal Respiratory Effort Cardiovascular: Regular Rate, Regular Rhythm GI/Abdominal Exam: Soft, Non-Tender Extremities: Non-Tender, No Pedal Edema Skin: Warm, Dry, Intact Neurological: No New Focal Deficit - Problem List Review Problem List Initiated/Reviewed/Updated: Yes - My Orders Last 24 Hours: My Active Orders 01/02/19 14:22 Morphine 2 mg IVPUSH Q3H PRN 01/02/19 17:00 Sucralfate [Carafate] 1 gm PO QIDACANDBED 01/02/19 Lunch Clear Liquid Diet [DIET] 01/03/19 05:11 BASIC METABOLIC PANEL,BMP [CHEM] AM CBC WITH AUTO DIFF [HEME] AM - Plan Plan:: 48 yo male with peptic ulcer and colitis. Treating with IV fluids, Protonix, Carafate, ciprofloxacin and Flagyl. White count has improved. EGD showed ulcer by pyloric sphincter. Will advance diet to clears today
[2019-01-02] MEDS ORDERED: Promethazine 25 MG/ML SDV IM PRN (23:41)
[2019-01-03] MEDS: Ciprofloxacin in D5W 400 MG in Premix Bag 1 BAG IV SCH ×2 (03:10)
[2019-01-03] MEDS: metroNIDAZOLE/Normal Saline 500 MG in Premix Bag 1 BAG IV SCH (06:32)
[2019-01-03] MEDS: Sucralfate 1 GM Tab PO SCH ×4 (06:33→21:14)
[2019-01-03] MEDS: Sodium Chloride 0.9% 1,000 ML IV SCH ×3 (06:34→22:20)
[2019-01-03 06:38] LABS: CHLORIDE,CL 105 mmol/L (98-107); SODIUM,NA 140 mmol/L (136-148)
--- NOTE | 2019-01-03 08:18 | PCM.PN ---
- General Info Date of Service: 01/03/19 Subjective Update: Pain is still occurring intermittently in his upper abdomen. He has drank minimal fluids, afraid of worsening pain. Denies fever, nausea, or vomiting. - Patient Data Vitals - Most Recent: Last Vital Signs Temp 37.5 C 01/03/19 07:36 Pulse 84 01/03/19 07:36 Resp 16 01/03/19 07:36 BP 149/78 H 01/03/19 07:36 Pulse Ox 95 01/03/19 07:36 Weight - Most Recent: 90.718 kg I&O - Last 24 Hours: Intake & Output 01/02/19 01/03/19 01/03/19 22:59 06:59 14:59 Intake Total 1130 200 Output Total 1500 1330 Balance -370 -1130 Lab Results Last 24 Hours: Laboratory Results - last 24 hr 01/03/19 01/03/19 Range/Units 06:00 06:00 WBC 14.23 H (4.0-11.0) K/uL RBC 4.67 (4.50-5.90) M/uL Hgb 14.0 (13.0-17.0) g/dL Hct 41.0 (38.0-50.0) % MCV 87.8 (80.0-98.0) fL MCH 30.0 (27.0-32.0) pg MCHC 34.1 (31.0-37.0) g/dL RDW Std Deviation 41.9 (28.0-62.0) fl RDW Coeff of Eliezer 13 (11.0-15.0) % Plt Count 256 (150-400) K/uL MPV 8.60 (7.40-12.00) fL Neut % (Auto) 79.8 (48.0-80.0) % Lymph % (Auto) 11.1 L (16.0-40.0) % [place] % (Auto) 8.9 (0.0-15.0) % Eos % (Auto) 0.1 (0.0-7.0) % Baso % (Auto) 0.1 (0.0-1.5) % Neut # (Auto) 11.4 H (1.4-5.7) K/uL Lymph # (Auto) 1.6 (0.6-2.4) K/uL [place] # (Auto) 1.3 H (0.0-0.8) K/uL Eos # (Auto) 0.0 (0.0-0.7) K/uL Baso # (Auto) 0.0 (0.0-0.1) K/uL Nucleated RBC % 0.0 /100WBC Nucleated RBCs # 0 K/uL Sodium 140 (136-148) mmol/L Potassium 3.7 (3.5-5.1) mmol/L Chloride 105 (98-107) mmol/L Carbon Dioxide 25.4 (21.0-32.0) mmol/L BUN 10 (7.0-18.0) mg/dL Creatinine 0.9 (0.8-1.3) mg/dL Est Cr Clr Drug Dosing 99.22 mL/min Estimated GFR (MDRD) > 60.0 ml/min Glucose 112 H (74-106) mg/dL Calcium 8.3 L (8.5-10.1) mg/dL Med Orders - Current: Current Medications Sodium Chloride (Normal Saline) 1,000 mls @ 125 mls/hr IV ASDIRECTED [facility] Last Admin: 01/03/19 06:34 Dose: 125 mls/hr Ciprofloxacin/Dextrose 400 mg/ (Premix) 200 mls @ 200 mls/hr IV Q12H [facility] Last Admin: 01/03/19 03:10 Dose: 200 mls/hr Metronidazole 500 mg/ Premix 100 mls @ 100 mls/hr IV Q8H [facility] Last Admin: 01/03/19 06:32 Dose: 6 mls/hr Pantoprazole Sodium 40 mg/ (Sodium Chloride) 10 mls @ 200 mls/hr IVPUSH Q24H [facility] Last Admin: 01/02/19 15:27 Dose: 200 mls/hr Lisinopril (Prinivil) 10 mg PO DAILY [facility] Last Admin: 01/02/19 09:14 Dose: 10 mg Morphine Sulfate (Morphine) 2 mg IVPUSH Q3H PRN PRN Reason: Pain Last Admin: 01/02/19 14:41 Dose: 2 mg Ondansetron HCl (Zofran) 4 mg IVPUSH Q4H PRN PRN Reason: Nausea Last Admin: 01/02/19 22:01 Dose: 4 mg Promethazine HCl (Phenergan) 25 mg IM Q6H PRN PRN Reason: Nausea/Vomiting Last Admin: 01/02/19 23:51 Dose: 25 mg Sucralfate (Carafate) 1 gm PO QIDACANDBED [facility] Last Admin: 01/03/19 06:33 Dose: 1 gm Discontinued Medications Dexamethasone (Dexamethasone) Confirm Administered Dose 20 mg .ROUTE .STK-MED ONE Stop: 01/02/19 07:05 Famotidine (Pepcid) 20 mg IVPUSH ONETIME ONE Stop: 01/01/19 12:29 Last Admin: 01/01/19 12:39 Dose: 20 mg Fentanyl (Sublimaze) Confirm Administered Dose 100 mcg .ROUTE .STK-MED ONE Stop: 01/02/19 07:03 Sodium Chloride (Normal Saline) 1,000 mls @ 999 mls/hr IV STAT ONE Stop: 01/01/19 11:15 Last Admin: 01/01/19 10:30 Dose: 999 mls/hr Ciprofloxacin/Dextrose 400 mg/ (Premix) 200 mls @ 200 mls/hr IV NOW STA Stop: 01/01/19 13:32 Last Admin: 01/01/19 12:39 Dose: 200 mls/hr Metronidazole 500 mg/ Premix 100 mls @ 100 mls/hr IV ONETIME ONE Stop: 01/01/19 13:32 Last Admin: 01/01/19 14:02 Dose: 100 mls/hr Pantoprazole Sodium 40 mg/ (Sodium Chloride) 100 mls @ 10 mls/hr IV Q24H [facility] Last Admin: 01/01/19 17:17 Dose: Not Given Lidocaine HCl (Xylocaine-Mpf 1%) Confirm Administered Dose 5 mls @ as directed .ROUTE .STK-MED ONE Stop: 01/02/19 07:05 Iopamidol (Isovue Multipack-370 (76%)) 100 ml IVPUSH ONETIME ONE Stop: 01/01/19 12:01 Last Admin: 01/01/19 12:01 Dose: 100 ml Ketorolac Tromethamine (Toradol) 30 mg IVPUSH ONETIME ONE Stop: 01/01/19 10:16 Last Admin: 01/01/19 10:29 Dose: 30 mg Metoclopramide HCl (Reglan) 10 mg IVPUSH ONETIME ONE Stop: 01/01/19 12:38 Last Admin: 01/01/19 12:41 Dose: 10 mg Midazolam HCl (Versed 1 Mg/Ml) Confirm Administered Dose 2 mg .ROUTE .STK-MED ONE Stop: 01/02/19 07:04 Morphine Sulfate (Morphine) 2 mg IVPUSH ONETIME ONE Stop: 01/01/19 11:27 Last Admin: 01/01/19 11:30 Dose: 2 mg Morphine Sulfate (Morphine) 2 mg IVPUSH ONETIME ONE Stop: 01/01/19 12:06 Last Admin: 01/01/19 12:10 Dose: 2 mg Ondansetron HCl (Zofran) 4 mg IVPUSH ONETIME ONE Stop: 01/01/19 10:16 Last Admin: 01/01/19 10:29 Dose: 4 mg Ondansetron HCl (Zofran) 4 mg IVPUSH ONETIME ONE Stop: 01/01/19 11:36 Last Admin: 01/01/19 11:37 Dose: 4 mg Ondansetron HCl (Zofran) Confirm Administered Dose 4 mg .ROUTE .STK-MED ONE Stop: 01/02/19 07:05 Phenylephrine HCl (Phenylephrine In Ns 100 Mcg/Ml) Confirm Administered Dose 1 mg .ROUTE .STK-MED ONE Stop: 01/02/19 07:59 Propofol (Diprivan 20 Ml) Confirm Administered Dose 200 mg .ROUTE .STK-MED ONE Stop: 01/02/19 07:03 Rocuronium [place] (Zemuron) Confirm Administered Dose 100 mg .ROUTE .STK-MED ONE Stop: 01/02/19 07:08 Succinylcholine Chloride (Succinylcholine Chloride) Confirm Administered Dose 200 mg .ROUTE .STK-MED ONE Stop: 01/02/19 07:08 Tramadol HCl (Ultram) 50 mg PO ONETIME ONE Stop: 01/02/19 11:36 Last Admin: 01/02/19 11:46 Dose: 50 mg - Exam General: Alert, Oriented HEENT: Pupils Equal, Pupils Reactive, EOMI, Mucous Membr. Moist/Basin Neck: Supple Lungs: Clear to Auscultation, Normal Respiratory Effort Cardiovascular: Regular Rate, Regular Rhythm GI/Abdominal Exam: Other (ruq/epigastric tenderness without rebound. no distension. no organomegaly) Back Exam: Normal Inspection, Full Range of Motion Extremities: Normal Inspection, Normal Range of Motion, Non-Tender, No Pedal Edema, Normal Capillary Refill Peripheral Pulses: 2+: Dorsalis Pedis (L), Dorsalis Pedis (R) - Problem List Review Problem List Initiated/Reviewed/Updated: Yes - Plan Plan:: 48 yo male with peptic ulcer and colitis. Treating with IV fluids, Protonix, Carafate, ciprofloxacin and Flagyl. White count has improved. EGD showed ulcer by pyloric sphincter. Will advance diet to clears today Assessment: #1. PUD #2. Colitis #3. Leukocytosis Plan: #1. Given increasing white count, will switch to IV zosyn #2. Continue IV fluids #3. Continue clear liquid diet. #4. PRN reglan #5 Scopolamine patch
--- NOTE | 2019-01-03 08:45 | PCM.CONSN ---
- General Info Date of Service: 01/03/19 Subjective Update: Patient complains of ongoing nausea and abdominal discomfort. He tried clears yesterday but had a small emesis and stopped. He has no appetite as well. - Review of Systems General: Reports: No Symptoms Pulmonary: Reports: No Symptoms Cardiovascular: Reports: No Symptoms Gastrointestinal: Reports: Decreased Appetite, Flatus, Nausea, Vomiting. Denies : Diarrhea Genitourinary: Reports: No Symptoms Musculoskeletal: Reports: No Symptoms Skin: Reports: No Symptoms - Patient Data Vitals - Most Recent: Last Vital Signs Temp 37.5 C 01/03/19 07:36 Pulse 84 01/03/19 07:36 Resp 16 01/03/19 07:36 BP 149/78 H 01/03/19 07:36 Pulse Ox 95 01/03/19 07:36 Weight - Most Recent: 90.718 kg I&O - Last 24 Hours: Intake & Output 01/02/19 01/03/19 01/03/19 22:59 06:59 14:59 Intake Total 1130 200 Output Total 1500 1330 Balance -370 -1130 Lab Results Last 24 Hours: Laboratory Results - last 24 hr 01/03/19 01/03/19 Range/Units 06:00 06:00 WBC 14.23 H (4.0-11.0) K/uL RBC 4.67 (4.50-5.90) M/uL Hgb 14.0 (13.0-17.0) g/dL Hct 41.0 (38.0-50.0) % MCV 87.8 (80.0-98.0) fL MCH 30.0 (27.0-32.0) pg MCHC 34.1 (31.0-37.0) g/dL RDW Std Deviation 41.9 (28.0-62.0) fl RDW Coeff of Eliezer 13 (11.0-15.0) % Plt Count 256 (150-400) K/uL MPV 8.60 (7.40-12.00) fL Neut % (Auto) 79.8 (48.0-80.0) % Lymph % (Auto) 11.1 L (16.0-40.0) % [place] % (Auto) 8.9 (0.0-15.0) % Eos % (Auto) 0.1 (0.0-7.0) % Baso % (Auto) 0.1 (0.0-1.5) % Neut # (Auto) 11.4 H (1.4-5.7) K/uL Lymph # (Auto) 1.6 (0.6-2.4) K/uL [place] # (Auto) 1.3 H (0.0-0.8) K/uL Eos # (Auto) 0.0 (0.0-0.7) K/uL Baso # (Auto) 0.0 (0.0-0.1) K/uL Nucleated RBC % 0.0 /100WBC Nucleated RBCs # 0 K/uL Sodium 140 (136-148) mmol/L Potassium 3.7 (3.5-5.1) mmol/L Chloride 105 (98-107) mmol/L Carbon Dioxide 25.4 (21.0-32.0) mmol/L BUN 10 (7.0-18.0) mg/dL Creatinine 0.9 (0.8-1.3) mg/dL Est Cr Clr Drug Dosing 99.22 mL/min Estimated GFR (MDRD) > 60.0 ml/min Glucose 112 H (74-106) mg/dL Calcium 8.3 L (8.5-10.1) mg/dL Med Orders - Current: Current Medications Sodium Chloride (Normal Saline) 1,000 mls @ 125 mls/hr IV ASDIRECTED [facility] Last Admin: 01/03/19 06:34 Dose: 125 mls/hr Ciprofloxacin/Dextrose 400 mg/ (Premix) 200 mls @ 200 mls/hr IV Q12H [facility] Last Admin: 01/03/19 03:10 Dose: 200 mls/hr Metronidazole 500 mg/ Premix 100 mls @ 100 mls/hr IV Q8H [facility] Last Admin: 01/03/19 06:32 Dose: 6 mls/hr Pantoprazole Sodium 40 mg/ (Sodium Chloride) 10 mls @ 200 mls/hr IVPUSH Q24H [facility] Last Admin: 01/02/19 15:27 Dose: 200 mls/hr Lisinopril (Prinivil) 10 mg PO DAILY [facility] Last Admin: 01/02/19 09:14 Dose: 10 mg Morphine Sulfate (Morphine) 2 mg IVPUSH Q3H PRN PRN Reason: Pain Last Admin: 01/02/19 14:41 Dose: 2 mg Ondansetron HCl (Zofran) 4 mg IVPUSH Q4H PRN PRN Reason: Nausea Last Admin: 01/02/19 22:01 Dose: 4 mg Promethazine HCl (Phenergan) 25 mg IM Q6H PRN PRN Reason: Nausea/Vomiting Last Admin: 01/02/19 23:51 Dose: 25 mg Sucralfate (Carafate) 1 gm PO QIDACANDBED [facility] Last Admin: 01/03/19 06:33 Dose: 1 gm Discontinued Medications Dexamethasone (Dexamethasone) Confirm Administered Dose 20 mg .ROUTE .STK-MED ONE Stop: 01/02/19 07:05 Famotidine (Pepcid) 20 mg IVPUSH ONETIME ONE Stop: 01/01/19 12:29 Last Admin: 01/01/19 12:39 Dose: 20 mg Fentanyl (Sublimaze) Confirm Administered Dose 100 mcg .ROUTE .STK-MED ONE Stop: 01/02/19 07:03 Sodium Chloride (Normal Saline) 1,000 mls @ 999 mls/hr IV STAT ONE Stop: 01/01/19 11:15 Last Admin: 01/01/19 10:30 Dose: 999 mls/hr Ciprofloxacin/Dextrose 400 mg/ (Premix) 200 mls @ 200 mls/hr IV NOW STA Stop: 01/01/19 13:32 Last Admin: 01/01/19 12:39 Dose: 200 mls/hr Metronidazole 500 mg/ Premix 100 mls @ 100 mls/hr IV ONETIME ONE Stop: 01/01/19 13:32 Last Admin: 01/01/19 14:02 Dose: 100 mls/hr Pantoprazole Sodium 40 mg/ (Sodium Chloride) 100 mls @ 10 mls/hr IV Q24H [facility] Last Admin: 01/01/19 17:17 Dose: Not Given Lidocaine HCl (Xylocaine-Mpf 1%) Confirm Administered Dose 5 mls @ as directed .ROUTE .STK-MED ONE Stop: 01/02/19 07:05 Iopamidol (Isovue Multipack-370 (76%)) 100 ml IVPUSH ONETIME ONE Stop: 01/01/19 12:01 Last Admin: 01/01/19 12:01 Dose: 100 ml Ketorolac Tromethamine (Toradol) 30 mg IVPUSH ONETIME ONE Stop: 01/01/19 10:16 Last Admin: 01/01/19 10:29 Dose: 30 mg Metoclopramide HCl (Reglan) 10 mg IVPUSH ONETIME ONE Stop: 01/01/19 12:38 Last Admin: 01/01/19 12:41 Dose: 10 mg Midazolam HCl (Versed 1 Mg/Ml) Confirm Administered Dose 2 mg .ROUTE .STK-MED ONE Stop: 01/02/19 07:04 Morphine Sulfate (Morphine) 2 mg IVPUSH ONETIME ONE Stop: 01/01/19 11:27 Last Admin: 01/01/19 11:30 Dose: 2 mg Morphine Sulfate (Morphine) 2 mg IVPUSH ONETIME ONE Stop: 01/01/19 12:06 Last Admin: 01/01/19 12:10 Dose: 2 mg Ondansetron HCl (Zofran) 4 mg IVPUSH ONETIME ONE Stop: 01/01/19 10:16 Last Admin: 01/01/19 10:29 Dose: 4 mg Ondansetron HCl (Zofran) 4 mg IVPUSH ONETIME ONE Stop: 01/01/19 11:36 Last Admin: 01/01/19 11:37 Dose: 4 mg Ondansetron HCl (Zofran) Confirm Administered Dose 4 mg .ROUTE .STK-MED ONE Stop: 01/02/19 07:05 Phenylephrine HCl (Phenylephrine In Ns 100 Mcg/Ml) Confirm Administered Dose 1 mg .ROUTE .STK-MED ONE Stop: 01/02/19 07:59 Propofol (Diprivan 20 Ml) Confirm Administered Dose 200 mg .ROUTE .STK-MED ONE Stop: 01/02/19 07:03 Rocuronium [place] (Zemuron) Confirm Administered Dose 100 mg .ROUTE .STK-MED ONE Stop: 01/02/19 07:08 Succinylcholine Chloride (Succinylcholine Chloride) Confirm Administered Dose 200 mg .ROUTE .STK-MED ONE Stop: 01/02/19 07:08 Tramadol HCl (Ultram) 50 mg PO ONETIME ONE Stop: 01/02/19 11:36 Last Admin: 01/02/19 11:46 Dose: 50 mg - Exam General: Alert, Mild Distress HEENT: Pupils Equal Lungs: Normal Respiratory Effort Cardiovascular: Regular Rate GI/Abdominal Exam: Soft, Non-Tender, No Distention, No Mass. No: Guarding, Rigid, Rebound Back Exam: Normal Inspection Consult PN Assessment/Plan Procedures: Procedures CHYLMD TRACH DNA AMP PROBE (05/05/17) CO/MEMBANE DIFFUSE CAPACITY (05/07/17) COMPLETE CBC W/AUTO DIFF WBC (05/05/17) COMPREHEN METABOLIC PANEL (05/05/17) EMERGENCY DEPT VISIT (05/05/17) EVALUATION OF WHEEZING (05/07/17) N.GONORRHOEAE DNA AMP PROB (05/05/17) ROUTINE VENIPUNCTURE (05/05/17) THER/PROPH/DIAG INJ SC/IM (05/05/17) URINALYSIS AUTO W/SCOPE (05/05/17) URINE CULTURE/COLONY COUNT (05/05/17) (1) Colitis SNOMED Code(s): 07054241 Code(s): K52.9 - NONINFECTIVE GASTROENTERITIS AND COLITIS, UNSPECIFIED Current Visit: Yes (2) Intractable nausea and vomiting SNOMED Code(s): 345300657 Code(s): R11.2 - NAUSEA WITH VOMITING, UNSPECIFIED Current Visit: Yes Qualifiers: Vomiting type: unspecified Qualified Code(s): R11.2 - Nausea with vomiting , unspecified Problem List Initiated/Reviewed/Updated: Yes Plan: WBC is slightly elevated today at 14K, neutrophil % is slightly down. His scope yesterday showed a pre-pyloric ulcer with duodenitis. His CT scan showed some mild inflammation of the colon at the hepatic flexure as well. Given he is still nauseated I would schedule an anti-emetic such as reglan. This may help treat his nausea more than symptomatic treatment. He doesn't have outlet obstruction as I was able to get my scope past he pylorus yesterday and I would expect more voluminous vomiting if he did. If this doesn't help would try a scopolamine patch. Switch IV antibiotics to zosyn given the rise in his WBC. Continue with carafate/sucralfate scheduled as well. Will continue to monitor.
[2019-01-03] MEDS ORDERED: Metoclopramide 10 MG Tab PO PRN (08:49)
[2019-01-03] MEDS ORDERED: Scopolamine 1.5 MG Transdermal Patch TRDERM PRN (09:00)
[2019-01-03] MEDS: Lisinopril 10 MG Tab PO SCH (09:09)
[2019-01-03] MEDS: Piperacillin/Tazobactam 4.5 GM in Sodium Chloride 0.9% 100 ML IV SCH ×3 (09:11→21:15)
[2019-01-03] MEDS: Morphine 2 MG/ML Syringe IVPUSH PRN (12:24)
[2019-01-03] MEDS: Pantoprazole 40 MG in Sodium Chloride 0.9% 10 ML IVPUSH SCH (14:23)
[2019-01-04] MEDS: Piperacillin/Tazobactam 4.5 GM in Sodium Chloride 0.9% 100 ML IV SCH ×2 (03:04→09:33)
[2019-01-04] MEDS: Sodium Chloride 0.9% 1,000 ML IV SCH (06:00)
[2019-01-04 06:53] LABS: CHLORIDE,CL 109 mmol/L (98-107); SODIUM,NA 142 mmol/L (136-148)
[2019-01-04 07:28] VITALS: BP 133/81
[2019-01-04] MEDS ORDERED: Potassium Chloride 20 MEQ Tab.ER PO ONE (07:45)
--- NOTE | 2019-01-04 08:25 | PCM.CONSN ---
- General Info Date of Service: 01/04/19 Functional Status: Reports: Pain Controlled, Tolerating Diet, Ambulating, Urinating - Review of Systems General: Reports: No Symptoms HEENT: Reports: No Symptoms Pulmonary: Reports: No Symptoms Cardiovascular: Reports: No Symptoms Gastrointestinal: Reports: No Symptoms Musculoskeletal: Reports: No Symptoms - Patient Data Vitals - Most Recent: Last Vital Signs Temp 36.8 C 01/04/19 07:27 Pulse 70 01/04/19 07:27 Resp 16 01/04/19 07:27 BP 133/81 01/04/19 07:27 Pulse Ox 96 01/04/19 07:27 Weight - Most Recent: 90.718 kg I&O - Last 24 Hours: Intake & Output 01/03/19 01/04/19 01/04/19 22:59 06:59 14:59 Intake Total 889 1169 Output Total 400 Balance 889 769 Lab Results Last 24 Hours: Laboratory Results - last 24 hr 01/04/19 01/04/19 Range/Units 05:37 05:37 WBC 7.96 (4.0-11.0) K/uL RBC 4.44 L (4.50-5.90) M/uL Hgb 13.1 (13.0-17.0) g/dL Hct 39.4 (38.0-50.0) % MCV 88.7 (80.0-98.0) fL MCH 29.5 (27.0-32.0) pg MCHC 33.2 (31.0-37.0) g/dL RDW Std Deviation 43.4 (28.0-62.0) fl RDW Coeff of Eliezer 13 (11.0-15.0) % Plt Count 234 (150-400) K/uL MPV 8.80 (7.40-12.00) fL Neut % (Auto) 59.9 (48.0-80.0) % Lymph % (Auto) 29.6 (16.0-40.0) % [place] % (Auto) 9.3 (0.0-15.0) % Eos % (Auto) 0.9 (0.0-7.0) % Baso % (Auto) 0.3 (0.0-1.5) % Neut # (Auto) 4.8 (1.4-5.7) K/uL Lymph # (Auto) 2.4 (0.6-2.4) K/uL [place] # (Auto) 0.7 (0.0-0.8) K/uL Eos # (Auto) 0.1 (0.0-0.7) K/uL Baso # (Auto) 0.0 (0.0-0.1) K/uL Nucleated RBC % 0.0 /100WBC Nucleated RBCs # 0 K/uL Sodium 142 (136-148) mmol/L Potassium 3.4 L (3.5-5.1) mmol/L Chloride 109 H (98-107) mmol/L Carbon Dioxide 26.2 (21.0-32.0) mmol/L BUN 11 (7.0-18.0) mg/dL Creatinine 0.9 (0.8-1.3) mg/dL Est Cr Clr Drug Dosing 99.22 mL/min Estimated GFR (MDRD) > 60.0 ml/min Glucose 102 (74-106) mg/dL Calcium 7.8 L (8.5-10.1) mg/dL Med Orders - Current: Current Medications Sodium Chloride (Normal Saline) 1,000 mls @ 125 mls/hr IV ASDIRECTED [facility] Last Admin: 01/04/19 06:00 Dose: 125 mls/hr Pantoprazole Sodium 40 mg/ (Sodium Chloride) 10 mls @ 200 mls/hr IVPUSH Q24H [facility] Last Admin: 01/03/19 14:23 Dose: 200 mls/hr Piperacillin Sod/Tazobactam (Sod 4.5 gm/ Sodium Chloride) 100 mls @ 200 mls/hr IV Q6H [facility] Last Admin: 01/04/19 03:04 Dose: 200 mls/hr Lisinopril (Prinivil) 10 mg PO DAILY [facility] Last Admin: 01/03/19 09:09 Dose: 10 mg Metoclopramide HCl (Reglan) 5 mg PO Q8H PRN PRN Reason: Nausea Last Admin: 01/03/19 12:26 Dose: 5 mg Morphine Sulfate (Morphine) 2 mg IVPUSH Q3H PRN PRN Reason: Pain Last Admin: 01/03/19 12:24 Dose: 2 mg Ondansetron HCl (Zofran) 4 mg IVPUSH Q4H PRN PRN Reason: Nausea Last Admin: 01/02/19 22:01 Dose: 4 mg Promethazine HCl (Phenergan) 25 mg IM Q6H PRN PRN Reason: Nausea/Vomiting Last Admin: 01/02/19 23:51 Dose: 25 mg Scopolamine (Transderm-Scop) 1.5 mg TRDERM Q72H PRN PRN Reason: Nausea Last Admin: 01/03/19 09:16 Dose: 1.5 mg Sucralfate (Carafate) 1 gm PO QIDACANDBED [facility] Last Admin: 01/03/19 21:14 Dose: 1 gm Discontinued Medications Dexamethasone (Dexamethasone) Confirm Administered Dose 20 mg .ROUTE .STK-MED ONE Stop: 01/02/19 07:05 Famotidine (Pepcid) 20 mg IVPUSH ONETIME ONE Stop: 01/01/19 12:29 Last Admin: 01/01/19 12:39 Dose: 20 mg Fentanyl (Sublimaze) Confirm Administered Dose 100 mcg .ROUTE .STK-MED ONE Stop: 01/02/19 07:03 Sodium Chloride (Normal Saline) 1,000 mls @ 999 mls/hr IV STAT ONE Stop: 01/01/19 11:15 Last Admin: 01/01/19 10:30 Dose: 999 mls/hr Ciprofloxacin/Dextrose 400 mg/ (Premix) 200 mls @ 200 mls/hr IV NOW STA Stop: 01/01/19 13:32 Last Admin: 01/01/19 12:39 Dose: 200 mls/hr Metronidazole 500 mg/ Premix 100 mls @ 100 mls/hr IV ONETIME ONE Stop: 01/01/19 13:32 Last Admin: 01/01/19 14:02 Dose: 100 mls/hr Ciprofloxacin/Dextrose 400 mg/ (Premix) 200 mls @ 200 mls/hr IV Q12H [facility] Last Admin: 01/03/19 03:10 Dose: 200 mls/hr Metronidazole 500 mg/ Premix 100 mls @ 100 mls/hr IV Q8H [facility] Last Admin: 01/03/19 06:32 Dose: 6 mls/hr Pantoprazole Sodium 40 mg/ (Sodium Chloride) 100 mls @ 10 mls/hr IV Q24H [facility] Last Admin: 01/01/19 17:17 Dose: Not Given Lidocaine HCl (Xylocaine-Mpf 1%) Confirm Administered Dose 5 mls @ as directed .ROUTE .STK-MED ONE Stop: 01/02/19 07:05 Iopamidol (Isovue Multipack-370 (76%)) 100 ml IVPUSH ONETIME ONE Stop: 01/01/19 12:01 Last Admin: 01/01/19 12:01 Dose: 100 ml Ketorolac Tromethamine (Toradol) 30 mg IVPUSH ONETIME ONE Stop: 01/01/19 10:16 Last Admin: 01/01/19 10:29 Dose: 30 mg Metoclopramide HCl (Reglan) 10 mg IVPUSH ONETIME ONE Stop: 01/01/19 12:38 Last Admin: 01/01/19 12:41 Dose: 10 mg Midazolam HCl (Versed 1 Mg/Ml) Confirm Administered Dose 2 mg .ROUTE .STK-MED ONE Stop: 01/02/19 07:04 Morphine Sulfate (Morphine) 2 mg IVPUSH ONETIME ONE Stop: 01/01/19 11:27 Last Admin: 01/01/19 11:30 Dose: 2 mg Morphine Sulfate (Morphine) 2 mg IVPUSH ONETIME ONE Stop: 01/01/19 12:06 Last Admin: 01/01/19 12:10 Dose: 2 mg Ondansetron HCl (Zofran) 4 mg IVPUSH ONETIME ONE Stop: 01/01/19 10:16 Last Admin: 01/01/19 10:29 Dose: 4 mg Ondansetron HCl (Zofran) 4 mg IVPUSH ONETIME ONE Stop: 01/01/19 11:36 Last Admin: 01/01/19 11:37 Dose: 4 mg Ondansetron HCl (Zofran) Confirm Administered Dose 4 mg .ROUTE .STK-MED ONE Stop: 01/02/19 07:05 Phenylephrine HCl (Phenylephrine In Ns 100 Mcg/Ml) Confirm Administered Dose 1 mg .ROUTE .STK-MED ONE Stop: 01/02/19 07:59 Potassium Chloride (Klor-Con M20) 40 meq PO ONETIME ONE Stop: 01/04/19 07:46 Propofol (Diprivan 20 Ml) Confirm Administered Dose 200 mg .ROUTE .STK-MED ONE Stop: 01/02/19 07:03 Rocuronium [place] (Zemuron) Confirm Administered Dose 100 mg .ROUTE .STK-MED ONE Stop: 01/02/19 07:08 Succinylcholine Chloride (Succinylcholine Chloride) Confirm Administered Dose 200 mg .ROUTE .STK-MED ONE Stop: 01/02/19 07:08 Tramadol HCl (Ultram) 50 mg PO ONETIME ONE Stop: 01/02/19 11:36 Last Admin: 01/02/19 11:46 Dose: 50 mg - Exam General: Alert, Oriented, Cooperative Lungs: Normal Respiratory Effort Cardiovascular: Regular Rate GI/Abdominal Exam: Soft, Non-Tender, No Abnormal Bruit, No Mass Consult PN Assessment/Plan Procedures: Procedures CHYLMD TRACH DNA AMP PROBE (05/05/17) CO/MEMBANE DIFFUSE CAPACITY (05/07/17) COMPLETE CBC W/AUTO DIFF WBC (05/05/17) COMPREHEN METABOLIC PANEL (05/05/17) EMERGENCY DEPT VISIT (05/05/17) EVALUATION OF WHEEZING (05/07/17) N.GONORRHOEAE DNA AMP PROB (05/05/17) ROUTINE VENIPUNCTURE (05/05/17) THER/PROPH/DIAG INJ SC/IM (05/05/17) URINALYSIS AUTO W/SCOPE (05/05/17) URINE CULTURE/COLONY COUNT (05/05/17) (1) Colitis SNOMED Code(s): 30294271 Code(s): K52.9 - NONINFECTIVE GASTROENTERITIS AND COLITIS, UNSPECIFIED Current Visit: Yes (2) Intractable nausea and vomiting SNOMED Code(s): 156227287 Code(s): R11.2 - NAUSEA WITH VOMITING, UNSPECIFIED Current Visit: Yes Qualifiers: Vomiting type: unspecified Qualified Code(s): R11.2 - Nausea with vomiting , unspecified Problem List Initiated/Reviewed/Updated: Yes Plan: Patient feels better this morning. Was able to eat with no nausea or vomiting. Advance diet to regular as tolerated today. Ok to switch to oral medications and antibiotics. WBC is now within normal limits. Will see in clinic in 2 weeks to discuss follow up EGD and colonoscopy. Patient should establish a PCP as an outpatient as well.
[2019-01-04] MEDS: Lisinopril 10 MG Tab PO SCH (09:32)
[2019-01-04] MEDS: Sucralfate 1 GM Tab PO SCH (09:33)
--- NOTE | 2019-01-04 12:35 | PCM.DCSUM1 ---
<Roberto Aldana - Last Filed: 01/04/19 12:31> Discharge Summary - Hospital Course Free Text/Narrative:: Admission date: 01/01/2019 Discharge date: 01/04/2019 Admission diagnosis: #1. Colitis #2. Leukocytosis #3. Nausea, RUQ pain, diarrhea #5. Moderate hematuria Discharge diagnosis: #1. Colitis #2. PUD #3. HTN Consults: Dr. Gomez, general surgery Hospital course: 48M admitted for above. Patient was treated with IV Cipro, Flagyl which was then changed to IV zosyn due to lack of improvement. EGD done by general surgery showed a pre-pyloric ulcer with duodenitis. Patient will be discharged home w f/u with general surgery for EGD/Colonoscopy. He is to go home on augmentin, protonix, carafate. I do also recommend that he get a repeat UA in the future. CT abdomen pelvis showed a normal bladder. Also started on lisinopril for HTN. F/u with PCP as well. - Discharge Data Discharge Date: 01/04/19 Discharge Disposition: Home, Self-Care 01 Condition: Fair - Patient Summary/Data Operative Procedure(s) Performed: Diagnostic EGD with biopsy - Patient Instructions Diet: Usual Diet as Tolerated Activity: As Tolerated Driving: May Drive Today Showering/Bathing: May Shower Notify Provider of: Fever, Increased Pain, Swelling and Redness, Drainage, Nausea and/or Vomiting Other/Special Instructions: Take protonix 40mg twice a day, for one week. Then go back to once a day dosing. Take other medications as prescribed. Follow up with your primary provider and Dr. Gomez, surgeon. - Discharge Plan Prescriptions/Med Rec: Amoxicillin/Clavulanate K [Augmentin 875-125 MG] 1 tab PO Q12H 9 Days #18 tablet Lisinopril [Prinivil] 10 mg PO DAILY 30 Days #30 tablet Ondansetron HCl [Zofran] 4 mg PO Q4H PRN #15 tablet PRN Reason: Nausea Pantoprazole Sodium [Protonix] 40 mg PO BID 7 Days #14 tablet. Scopolamine [Transderm-Scop] 1.5 mg TRDERM Q72H PRN #10 patch PRN Reason: Nausea Sucralfate [Carafate] 1 gm PO QID #120 tablet Home Medications: Home Meds Pantoprazole Sodium 40 mg PO DAILY 05/05/17 [History] Amoxicillin/Clavulanate K [Augmentin 875-125 MG] 1 tab PO Q12H 9 Days #18 tablet 01/04/19 [Rx] Lisinopril [Prinivil] 10 mg PO DAILY 30 Days #30 tablet 01/04/19 [Rx] Ondansetron HCl [Zofran] 4 mg PO Q4H PRN #15 tablet 01/04/19 [Rx] Pantoprazole Sodium [Protonix] 40 mg PO BID 7 Days #14 tablet. 01/04/19 [Rx] Scopolamine [Transderm-Scop] 1.5 mg TRDERM Q72H PRN #10 patch 01/04/19 [Rx] Sucralfate [Carafate] 1 gm PO QID #120 tablet 01/04/19 [Rx] Patient Handouts: Amoxicillin; Clavulanic Acid tablets, Ondansetron tablets, Scopolamine skin patches, Sucralfate tablets, Lisinopril tablets, Colitis Referrals: Elan Stevens MD [Resident] - 01/11/19 10:15 am Emma Gomez MD [Physician] - 01/20/19 8:00 am - Discharge Summary/Plan Comment DC Time >30 min.: No - Patient Data Vitals - Most Recent: Last Vital Signs Temp 36.8 C 01/04/19 07:27 Pulse 70 01/04/19 07:27 Resp 16 01/04/19 07:27 BP 133/81 01/04/19 09:32 Pulse Ox 96 01/04/19 07:27 Weight - Most Recent: 90.718 kg I&O - Last 24 hours: Intake & Output 01/03/19 01/04/19 01/04/19 22:59 06:59 14:59 Intake Total 889 1169 Output Total 400 Balance 889 769 Lab Results - Last 24 hrs: Laboratory Results - last 24 hr 01/04/19 01/04/19 Range/Units 05:37 05:37 WBC 7.96 (4.0-11.0) K/uL RBC 4.44 L (4.50-5.90) M/uL Hgb 13.1 (13.0-17.0) g/dL Hct 39.4 (38.0-50.0) % MCV 88.7 (80.0-98.0) fL MCH 29.5 (27.0-32.0) pg MCHC 33.2 (31.0-37.0) g/dL RDW Std Deviation 43.4 (28.0-62.0) fl RDW Coeff of Eliezer 13 (11.0-15.0) % Plt Count 234 (150-400) K/uL MPV 8.80 (7.40-12.00) fL Neut % (Auto) 59.9 (48.0-80.0) % Lymph % (Auto) 29.6 (16.0-40.0) % [place]royo % (Auto) 9.3 (0.0-15.0) % Eos % (Auto) 0.9 (0.0-7.0) % Baso % (Auto) 0.3 (0.0-1.5) % Neut # (Auto) 4.8 (1.4-5.7) K/uL Lymph # (Auto) 2.4 (0.6-2.4) K/uL [place] # (Auto) 0.7 (0.0-0.8) K/uL Eos # (Auto) 0.1 (0.0-0.7) K/uL Baso # (Auto) 0.0 (0.0-0.1) K/uL Nucleated RBC % 0.0 /100WBC Nucleated RBCs # 0 K/uL Sodium 142 (136-148) mmol/L Potassium 3.4 L (3.5-5.1) mmol/L Chloride 109 H (98-107) mmol/L Carbon Dioxide 26.2 (21.0-32.0) mmol/L BUN 11 (7.0-18.0) mg/dL Creatinine 0.9 (0.8-1.3) mg/dL Est Cr Clr Drug Dosing 99.22 mL/min Estimated GFR (MDRD) > 60.0 ml/min Glucose 102 (74-106) mg/dL Calcium 7.8 L (8.5-10.1) mg/dL Med Orders - Current: Current Medications Discontinued Medications Dexamethasone (Dexamethasone) Confirm Administered Dose 20 mg .ROUTE .STK-MED ONE Stop: 01/02/19 07:05 Famotidine (Pepcid) 20 mg IVPUSH ONETIME ONE Stop: 01/01/19 12:29 Last Admin: 01/01/19 12:39 Dose: 20 mg Fentanyl (Sublimaze) Confirm Administered Dose 100 mcg .ROUTE .STK-MED ONE Stop: 01/02/19 07:03 Sodium Chloride (Normal Saline) 1,000 mls @ 999 mls/hr IV STAT ONE Stop: 01/01/19 11:15 Last Admin: 01/01/19 10:30 Dose: 999 mls/hr Ciprofloxacin/Dextrose 400 mg/ (Premix) 200 mls @ 200 mls/hr IV NOW STA Stop: 01/01/19 13:32 Last Admin: 01/01/19 12:39 Dose: 200 mls/hr Metronidazole 500 mg/ Premix 100 mls @ 100 mls/hr IV ONETIME ONE Stop: 01/01/19 13:32 Last Admin: 01/01/19 14:02 Dose: 100 mls/hr Sodium Chloride (Normal Saline) 1,000 mls @ 125 mls/hr IV ASDIRECTED [facility] Last Admin: 01/04/19 06:00 Dose: 125 mls/hr Ciprofloxacin/Dextrose 400 mg/ (Premix) 200 mls @ 200 mls/hr IV Q12H [facility] Last Admin: 01/03/19 03:10 Dose: 200 mls/hr Metronidazole 500 mg/ Premix 100 mls @ 100 mls/hr IV Q8H [facility] Last Admin: 01/03/19 06:32 Dose: 6 mls/hr Pantoprazole Sodium 40 mg/ (Sodium Chloride) 100 mls @ 10 mls/hr IV Q24H [facility] Last Admin: 01/01/19 17:17 Dose: Not Given Pantoprazole Sodium 40 mg/ (Sodium Chloride) 10 mls @ 200 mls/hr IVPUSH Q24H [facility] Last Admin: 01/03/19 14:23 Dose: 200 mls/hr Lidocaine HCl (Xylocaine-Mpf 1%) Confirm Administered Dose 5 mls @ as directed .ROUTE .STK-MED ONE Stop: 01/02/19 07:05 Piperacillin Sod/Tazobactam (Sod 4.5 gm/ Sodium Chloride) 100 mls @ 200 mls/hr IV Q6H [facility] Last Admin: 01/04/19 09:33 Dose: 200 mls/hr Iopamidol (Isovue Multipack-370 (76%)) 100 ml IVPUSH ONETIME ONE Stop: 01/01/19 12:01 Last Admin: 01/01/19 12:01 Dose: 100 ml Ketorolac Tromethamine (Toradol) 30 mg IVPUSH ONETIME ONE Stop: 01/01/19 10:16 Last Admin: 01/01/19 10:29 Dose: 30 mg Lisinopril (Prinivil) 10 mg PO DAILY [facility] Last Admin: 01/04/19 09:32 Dose: 10 mg Metoclopramide HCl (Reglan) 10 mg IVPUSH ONETIME ONE Stop: 01/01/19 12:38 Last Admin: 01/01/19 12:41 Dose: 10 mg Metoclopramide HCl (Reglan) 5 mg PO Q8H PRN PRN Reason: Nausea Last Admin: 01/03/19 12:26 Dose: 5 mg Midazolam HCl (Versed 1 Mg/Ml) Confirm Administered Dose 2 mg .ROUTE .STK-MED ONE Stop: 01/02/19 07:04 Morphine Sulfate (Morphine) 2 mg IVPUSH ONETIME ONE Stop: 01/01/19 11:27 Last Admin: 01/01/19 11:30 Dose: 2 mg Morphine Sulfate (Morphine) 2 mg IVPUSH ONETIME ONE Stop: 01/01/19 12:06 Last Admin: 01/01/19 12:10 Dose: 2 mg Morphine Sulfate (Morphine) 2 mg IVPUSH Q3H PRN PRN Reason: Pain Last Admin: 01/03/19 12:24 Dose: 2 mg Ondansetron HCl (Zofran) 4 mg IVPUSH ONETIME ONE Stop: 01/01/19 10:16 Last Admin: 01/01/19 10:29 Dose: 4 mg Ondansetron HCl (Zofran) 4 mg IVPUSH ONETIME ONE Stop: 01/01/19 11:36 Last Admin: 01/01/19 11:37 Dose: 4 mg Ondansetron HCl (Zofran) 4 mg IVPUSH Q4H PRN PRN Reason: Nausea Last Admin: 01/02/19 22:01 Dose: 4 mg Ondansetron HCl (Zofran) Confirm Administered Dose 4 mg .ROUTE .STK-MED ONE Stop: 01/02/19 07:05 Phenylephrine HCl (Phenylephrine In Ns 100 Mcg/Ml) Confirm Administered Dose 1 mg .ROUTE .STK-MED ONE Stop: 01/02/19 07:59 Potassium Chloride (Klor-Con M20) 40 meq PO ONETIME ONE Stop: 01/04/19 07:46 Last Admin: 01/04/19 09:32 Dose: 40 meq Promethazine HCl (Phenergan) 25 mg IM Q6H PRN PRN Reason: Nausea/Vomiting Last Admin: 01/02/19 23:51 Dose: 25 mg Propofol (Diprivan 20 Ml) Confirm Administered Dose 200 mg .ROUTE .STK-MED ONE Stop: 01/02/19 07:03 Rocuronium [place] (Zemuron) Confirm Administered Dose 100 mg .ROUTE .STK-MED ONE Stop: 01/02/19 07:08 Scopolamine (Transderm-Scop) 1.5 mg TRDERM Q72H PRN PRN Reason: Nausea Last Admin: 01/03/19 09:16 Dose: 1.5 mg Succinylcholine Chloride (Succinylcholine Chloride) Confirm Administered Dose 200 mg .ROUTE .STK-MED ONE Stop: 01/02/19 07:08 Sucralfate (Carafate) 1 gm PO QIDACANDBED [facility] Last Admin: 01/04/19 09:33 Dose: 1 gm Tramadol HCl (Ultram) 50 mg PO ONETIME ONE Stop: 01/02/19 11:36 Last Admin: 01/02/19 11:46 Dose: 50 mg <Sai Levi - Last Filed: 01/05/19 19:45> - Patient Data Vitals - Most Recent: Last Vital Signs Temp 36.8 C 01/04/19 07:27 Pulse 70 01/04/19 07:27 Resp 16 01/04/19 07:27 BP 133/81 01/04/19 09:32 Pulse Ox 96 01/04/19 07:27 Med Orders - Current: Current Medications Discontinued Medications Dexamethasone (Dexamethasone) Confirm Administered Dose 20 mg .ROUTE .STK-MED ONE Stop: 01/02/19 07:05 Famotidine (Pepcid) 20 mg IVPUSH ONETIME ONE Stop: 01/01/19 12:29 Last Admin: 01/01/19 12:39 Dose: 20 mg Fentanyl (Sublimaze) Confirm Administered Dose 100 mcg .ROUTE .STK-MED ONE Stop: 01/02/19 07:03 Sodium Chloride (Normal Saline) 1,000 mls @ 999 mls/hr IV STAT ONE Stop: 01/01/19 11:15 Last Admin: 01/01/19 10:30 Dose: 999 mls/hr Ciprofloxacin/Dextrose 400 mg/ (Premix) 200 mls @ 200 mls/hr IV NOW STA Stop: 01/01/19 13:32 Last Admin: 01/01/19 12:39 Dose: 200 mls/hr Metronidazole 500 mg/ Premix 100 mls @ 100 mls/hr IV ONETIME ONE Stop: 01/01/19 13:32 Last Admin: 01/01/19 14:02 Dose: 100 mls/hr Sodium Chloride (Normal Saline) 1,000 mls @ 125 mls/hr IV ASDIRECTED [facility] Last Admin: 01/04/19 06:00 Dose: 125 mls/hr Ciprofloxacin/Dextrose 400 mg/ (Premix) 200 mls @ 200 mls/hr IV Q12H [facility] Last Admin: 01/03/19 03:10 Dose: 200 mls/hr Metronidazole 500 mg/ Premix 100 mls @ 100 mls/hr IV Q8H [facility] Last Admin: 01/03/19 06:32 Dose: 6 mls/hr Pantoprazole Sodium 40 mg/ (Sodium Chloride) 100 mls @ 10 mls/hr IV Q24H [facility] Last Admin: 01/01/19 17:17 Dose: Not Given Pantoprazole Sodium 40 mg/ (Sodium Chloride) 10 mls @ 200 mls/hr IVPUSH Q24H [facility] Last Admin: 01/03/19 14:23 Dose: 200 mls/hr Lidocaine HCl (Xylocaine-Mpf 1%) Confirm Administered Dose 5 mls @ as directed .ROUTE .STK-MED ONE Stop: 01/02/19 07:05 Piperacillin Sod/Tazobactam (Sod 4.5 gm/ Sodium Chloride) 100 mls @ 200 mls/hr IV Q6H [facility] Last Admin: 01/04/19 09:33 Dose: 200 mls/hr Iopamidol (Isovue Multipack-370 (76%)) 100 ml IVPUSH ONETIME ONE Stop: 01/01/19 12:01 Last Admin: 01/01/19 12:01 Dose: 100 ml Ketorolac Tromethamine (Toradol) 30 mg IVPUSH ONETIME ONE Stop: 01/01/19 10:16 Last Admin: 01/01/19 10:29 Dose: 30 mg Lisinopril (Prinivil) 10 mg PO DAILY [facility] Last Admin: 01/04/19 09:32 Dose: 10 mg Metoclopramide HCl (Reglan) 10 mg IVPUSH ONETIME ONE Stop: 01/01/19 12:38 Last Admin: 01/01/19 12:41 Dose: 10 mg Metoclopramide HCl (Reglan) 5 mg PO Q8H PRN PRN Reason: Nausea Last Admin: 01/03/19 12:26 Dose: 5 mg Midazolam HCl (Versed 1 Mg/Ml) Confirm Administered Dose 2 mg .ROUTE .STK-MED ONE Stop: 01/02/19 07:04 Morphine Sulfate (Morphine) 2 mg IVPUSH ONETIME ONE Stop: 01/01/19 11:27 Last Admin: 01/01/19 11:30 Dose: 2 mg Morphine Sulfate (Morphine) 2 mg IVPUSH ONETIME ONE Stop: 01/01/19 12:06 Last Admin: 01/01/19 12:10 Dose: 2 mg Morphine Sulfate (Morphine) 2 mg IVPUSH Q3H PRN PRN Reason: Pain Last Admin: 01/03/19 12:24 Dose: 2 mg Ondansetron HCl (Zofran) 4 mg IVPUSH ONETIME ONE Stop: 01/01/19 10:16 Last Admin: 01/01/19 10:29 Dose: 4 mg Ondansetron HCl (Zofran) 4 mg IVPUSH ONETIME ONE Stop: 01/01/19 11:36 Last Admin: 01/01/19 11:37 Dose: 4 mg Ondansetron HCl (Zofran) 4 mg IVPUSH Q4H PRN PRN Reason: Nausea Last Admin: 01/02/19 22:01 Dose: 4 mg Ondansetron HCl (Zofran) Confirm Administered Dose 4 mg .ROUTE .STK-MED ONE Stop: 01/02/19 07:05 Phenylephrine HCl (Phenylephrine In Ns 100 Mcg/Ml) Confirm Administered Dose 1 mg .ROUTE .STK-MED ONE Stop: 01/02/19 07:59 Potassium Chloride (Klor-Con M20) 40 meq PO ONETIME ONE Stop: 01/04/19 07:46 Last Admin: 01/04/19 09:32 Dose: 40 meq Promethazine HCl (Phenergan) 25 mg IM Q6H PRN PRN Reason: Nausea/Vomiting Last Admin: 01/02/19 23:51 Dose: 25 mg Propofol (Diprivan 20 Ml) Confirm Administered Dose 200 mg .ROUTE .STK-MED ONE Stop: 01/02/19 07:03 Rocuronium [place] (Zemuron) Confirm Administered Dose 100 mg .ROUTE .STK-MED ONE Stop: 01/02/19 07:08 Scopolamine (Transderm-Scop) 1.5 mg TRDERM Q72H PRN PRN Reason: Nausea Last Admin: 01/03/19 09:16 Dose: 1.5 mg Succinylcholine Chloride (Succinylcholine Chloride) Confirm Administered Dose 200 mg .ROUTE .STK-MED ONE Stop: 01/02/19 07:08 Sucralfate (Carafate) 1 gm PO QIDACANDBED [facility] Last Admin: 01/04/19 09:33 Dose: 1 gm Tramadol HCl (Ultram) 50 mg PO ONETIME ONE Stop: 01/02/19 11:36 Last Admin: 01/02/19 11:46 Dose: 50 mg - Free Text/Narrative Note: I have seen and evaluated the patient. I have discussed findings with resident. I agree with the assessment and plan outlined in the following resident's note.
== END 2019-01-04 10:50 | disposition home or self-care (01) ==
LOC: MW.ED 10:12 → MW.MS 12:40
PROVIDERS: ADMIT Internal Medicine; ATTEND Internal Medicine
DX: K27.9 Peptic ulcer, site unspecified, unspecified as acute or chronic, without hemorrhage or perforation (principal); K52.9 Noninfective gastroenteritis and colitis, unspecified; I10 Essential (primary) hypertension; D72.829 Elevated white blood cell count, unspecified; R31.9 Hematuria, unspecified; F17.210 Nicotine dependence, cigarettes, uncomplicated; Z79.899 Other long term (current) drug therapy
CPT/HCPCS: 36415; 43239; 74177; 80048; 80053; 81001; 83690; 85025; 85027; 86677; 96361; 96365; 96366; 96367; 96372; 96375; 96376; 99285; A4217; A9270; C9113; G0378; J0330; J0744; J1100; J1885; J2001; J2250; J2270; J2370; J2405; J2543; J2550; J2704; J2765; J3010; J3490; J7030; J7040; J7050; Q9967; 88305; 88312; 99284

== ENCOUNTER 2019-03-19 10:00 | Day surgery (SDC) | payer BC ==
[~2019-03-19 10:00] MED LIST: Lactated Ringers 1,000 ML IV SCH; Lidocaine 2% 5 ML SDV ONE; Propofol 200 MG/20 ML SDV ONE; Sodium Chloride 0.9% 10 ML SDV IV PRN; Sodium Chloride 0.9% 10 ML Syringe FLUSH PRN; Sodium Chloride 0.9% 2.5 ML Syringe FLUSH PRN; fentaNYL 100 MCG/2 ML SDV ONE
--- NOTE | 2019-03-19 10:36 | PCM.PREANE ---
Preanesthetic Assessment - Anesthesia/Transfusion/Family Hx Anesthesia History: Prior Anesthesia Without Reaction Family History of Anesthesia Reaction: No Transfusion History: No Prior Transfusion(s) - Review of Systems General: No Symptoms Pulmonary: No Symptoms Cardiovascular: No Symptoms Gastrointestinal: No Symptoms Neurological: No Symptoms Other: Reports: None - Physical Assessment NPO Status Date: 03/18/19 Height: 5 ft 8 in Weight: 93.44 kg ASA Class: 2 Mental Status: Alert & Oriented x3 Airway Class: Mallampati = 2 Dentition: Reports: Normal Dentition ROM/Head Extension: Full Lungs: Clear to Auscultation, Normal Respiratory Effort Cardiovascular: Regular Rate, Regular Rhythm - Allergies Allergies/Adverse Reactions: Allergies Allergy/AdvReac Type Severity Reaction Status Date / Time Penicillins Allergy mother has Verified 03/16/19 08:38 allergies to PCN - Blood Blood Available: No - Anesthesia Plan Pre-Op Medication Ordered: None - Acknowledgements Anesthesia Type Planned: General Anesthesia Pt an Appropriate Candidate for the Planned Anesthesia: Yes Alternatives and Risks of Anesthesia Discussed w Pt/Guardian: Yes Pt/Guardian Understands and Agrees with Anesthesia Plan: Yes Additional Comments: PMH: gerd/colitis, smoker, htn PLAN: tiva PreAnesthesia Questionnaire HEENT History: Reports: None Cardiovascular History: Reports: Hypertension Respiratory History: Reports: None Gastrointestinal History: Reports: Diverticulosis, Helicobacter Pylori, PUD Genitourinary History: Reports: None Musculoskeletal History: Reports: None Neurological History: Reports: None Psychiatric History: Reports: None Endocrine/Metabolic History: Reports: Obesity/BMI 30+ Hematologic History: Reports: None Immunologic History: Reports: None Oncologic (Cancer) History: Reports: None Dermatologic History: Reports: None - Infectious Disease History Infectious Disease History: Reports: None - Past Surgical History Head Surgeries/Procedures: Reports: None HEENT Surgical History: Reports: None Cardiovascular Surgical History: Reports: None Respiratory Surgical History: Reports: None GI Surgical History: Reports: EGD Male Surgical History: Reports: None Endocrine Surgical History: Reports: None Neurological Surgical History: Reports: None Musculoskeletal Surgical History: Reports: None Oncologic Surgical History: Reports: None Dermatological Surgical History: Reports: None - SUBSTANCE USE Smoking Status *Q: Current Every Day Smoker Tobacco Use Within Last Twelve Months: Cigarettes Recreational Drug Use History: No - HOME MEDS Home Medications: Home Meds Pantoprazole Sodium 40 mg PO DAILY 05/05/17 [History] Lisinopril [Prinivil] 10 mg PO DAILY 30 Days #30 tablet 01/04/19 [Rx] - CURRENT (IN HOUSE) MEDS Current Meds: Current Medications Lactated Ringer's (Ringers, Lactated) 1,000 mls @ 125 mls/hr IV ASDIRECTED [facility] Sodium Chloride (Saline Flush) 10 ml FLUSH ASDIRECTED PRN PRN Reason: Keep Vein Open Sodium Chloride (Saline Flush) 2.5 ml FLUSH ASDIRECTED PRN PRN Reason: Keep Vein Open Discontinued Medications Fentanyl (Sublimaze) Confirm Administered Dose 100 mcg .ROUTE .STK-MED ONE Stop: 03/19/19 07:58 Lidocaine (Xylocaine-Mpf 2%) Confirm Administered Dose 5 ml .ROUTE .STK-MED ONE Stop: 03/19/19 07:57 Propofol (Diprivan 20 Ml) Confirm Administered Dose 400 mg .ROUTE .STK-MED ONE Stop: 03/19/19 07:57
--- NOTE | 2019-03-19 12:44 | PCM.OPNOTE ---
- General Post-Op/Procedure Note Date of Surgery/Procedure: 03/19/19 Operative Procedure(s): Diagnsotic EGD and screening colonoscopy Findings: Normal EGD, diverticulosis Pre Op Diagnosis: History of esophagitis, screening colonoscopy Post-Op Diagnosis: diverticulosis, normal egd Anesthesia Technique: HANNA Primary Surgeon: Emma Gomez Condition: Good
[2019-03-19 13:11] VITALS: BP 118/63
--- NOTE | 2019-03-19 13:32 | PCM48HPAN ---
Post Anesthesia Note - EVALUATION WITHIN 48HRS OF ANESTHETIC Vital Signs in Normal Range: Yes Patient Participated in Evaluation: Yes Respiratory Function Stable: Yes Airway Patent: Yes Cardiovascular Function Stable: Yes Hydration Status Stable: Yes Pain Control Satisfactory: Yes Nausea and Vomiting Control Satisfactory: Yes Mental Status Recovered: Yes Resp Rate: 16
--- NOTE | 2019-03-19 20:37 | OR ---
SURGEON: EMMA GOMEZ MD DATE OF PROCEDURE: 03/19/2019 PREOPERATIVE DIAGNOSES: History of peptic ulcer disease, diverticulosis. POSTOPERATIVE DIAGNOSES: Normal esophagogastroduodenoscopy, diverticulosis. PROCEDURE PERFORMED: Diagnostic esophagogastroduodenoscopy and colonoscopy. PRIMARY SURGEON: Endoscopist, Emma Gomez MD ANESTHESIA: MAC. INSTRUMENT USED: Olympus endoscope and colonoscope. EXTENT OF EXAM: To the second portion of duodenum, to the cecum. PREPARATION: Good. LIMITATIONS: None. INDICATION FOR EXAMINATION: The patient is a 48-year-old male who was hospitalized several months ago with an ulcer in the antrum of the stomach. There was also questionable diverticulitis on CT scan. His symptoms have now resolved, and he is due for a diagnostic EGD and colonoscopy. I explained the procedure, expected perioperative course, and the risks including bleeding, infection, or damage to surrounding structures including perforation. The patient verbalized understanding and wishes to proceed. PROCEDURE IN DETAIL: The patient was brought into the endoscopy suite and placed on the OR cart in a left lateral decubitus position. A time-out was completed verifying the patient's name, age, date of , allergies, and procedure to be performed. Monitored anesthesia care was induced, and continuous oxygen was provided via nasal cannula throughout the procedure. A bite block was placed in the patient's mouth. After adequate sedation was achieved, a well-lubricated endoscope was placed in the patient's mouth and advanced under direct visualization to the second portion of duodenum. This appeared normal, and a photograph was taken. The scope was then fully withdrawn while examining the color, texture, anatomy, and integrity of the mucosa of the upper GI tract. The duodenum appeared normal. The scope was brought into the stomach, and a photograph was taken of the pylorus and GE junction. Both appeared normal. There was no further evidence of any inflammation or ulceration within the stomach. The scope was then brought into the distal esophagus, and a photograph was taken of the Z-line. This appeared normal. The esophageal mucosa was pink and healthy with no evidence of disease. The scope was removed, and this portion of the procedure terminated. A digital rectal exam was performed. This exam was within normal limits. A well-lubricated colonoscope was inserted in the rectum and advanced under direct visualization to the level of the cecum. The cecum was identified by both visual and anatomic landmarks. A photograph was taken of the cecal cap; however, I was unable to retroflex the scope within the cecum due to looping of the scope more proximally. The scope was then fully withdrawn while examining the color, texture, anatomy, and integrity of the mucosa from the cecum to the anal canal. The patient was found to have diverticulosis throughout the colon. The scope was brought into the rectum and retroflexed to allow visualization of the anal canal opening. This appeared normal, and a photograph was taken. The scope was then straightened out and fully withdrawn. The cecum to anus time was 7 minutes. The patient tolerated the procedure well and was taken to the PACU in stable condition. ENDOSCOPIC DIAGNOSES: Normal esophagogastroduodenoscopy, diverticulosis. RECOMMENDATIONS: The patient and I visited about our findings today in the postoperative care area. He is aware he has diverticulosis. He will continue to take pantoprazole for the next year. I will see him after 1 year and determine any further treatment plans from there. LAURIE LARA /[id number]
== END 2019-03-19 13:32 | disposition home or self-care (01) ==
LOC: MW.SDS 10:00
PROVIDERS: ATTEND Surgery
DX: K57.30 Diverticulosis of large intestine without perforation or abscess without bleeding (principal); K21.9 Gastro-esophageal reflux disease without esophagitis; F17.210 Nicotine dependence, cigarettes, uncomplicated; I10 Essential (primary) hypertension; E66.9 Obesity, unspecified; Z68.31 Body mass index [BMI] 31.0-31.9, adult; Z87.11 Personal history of peptic ulcer disease; Z88.0 Allergy status to penicillin; Z79.899 Other long term (current) drug therapy
CPT/HCPCS: 43235; 45378; J2001; J2704; J3010; J7120